=== PATIENT | female | born 1965 | race African-American/Black ===

== ENCOUNTER 2021-03-07 19:29 | Emergency (ER) | payer BC ==
[~2021-03-07] VITALS: Ht 170.2 cm; Wt 72.6 kg
[2021-03-07 22:05] LABS: Basophils # (auto) 0 10 ^3/uL (0-0.2); Basophils % (auto) 0.6 % (0.0-2.0); Eosinophils # (auto) 0 10 ^3/uL (0-0.8); Eosinophils % (auto) 0.1 % (0.0-7.0); Hematocrit 35.1 % (36.0-46.0); Hemoglobin 11.3 g/dL (12.2-16.2); Lymphocytes # (auto) 0.4 10 ^3/uL (0.4-5.4); Lymphocytes % (auto) 5.5 % (10.0-50.0); Mean Corpuscular Hemoglobin 28.6 pg (28.0-32.0); Mean Corpuscular Hgb Conc. 32.3 g/dL (32.0-36.0); Mean Corpuscular Volume 88.8 fL (80.0-100.0); Monocytes # (auto) 0.4 10 ^3/uL (0-1.3); Monocytes % (auto) 5.7 % (0.0-12.0); Neutrophils # (auto) 6.9 10 ^3/uL (1.6-8.6); Neutrophils % (auto) 88.1 % (37.0-80.0); Nucleated Red Blood Cells % 0.1 %; Red Blood Cells 3.95 10^6/uL (4.0-5.20); Red Cell Distribution Width 13.1 % (11.8-14.3); White Blood Cell 7.8 10^3/uL (4.4-10.8)
[2021-03-07 22:22] LABS: Albumin 4.2 g/dL (3.4-5.0); Calcium 8.3 mg/dL (8.5-10.1)
[2021-03-07 22:34] LABS: BUN/Creatinine Ratio 7.6; Bilirubin, Total 0.4 mg/dL (0.2-1.0)
[2021-03-07 22:39] LABS: Magnesium 4.3 mg/dL (1.6-2.6); Potassium 6.6 mmol/L (3.5-5.1)
[2021-03-08] MEDS ORDERED: SODIUM ZIRCONIUM CYCL 10 GM PAK PO ONE (00:45)
[2021-03-08] MEDS ORDERED: DEXTROSE (50%) 50ML SYRG IV ONE (00:45)
[2021-03-08] MEDS ORDERED: ALBUTEROL SULF 2.5 MG/0.5ML(0.5%) NEB SOLN NEB ONE (00:45)
[2021-03-08] MEDS ORDERED: InsuLIN REG 1unit/0.01ml Soln (100units/ml) IV ONE (00:45)
[2021-03-08] MEDS ORDERED: CALCIUM GLUC 1,000mg/50ml-NS 50 ML IV ONE (00:45)
[2021-03-08] MEDS ORDERED: SODIUM BICARBONATE 8.4% INJ 50ML SYRINGE IV ONE (00:45)
[2021-03-08 05:00] VITALS: BP 186/93
== END 2021-03-08 05:59 | disposition home or self-care (01) ==
LOC: ER 19:29
DX: E87.5 Hyperkalemia (principal); I12.0 Hypertensive chronic kidney disease with stage 5 chronic kidney disease or end stage renal disease; N18.6 End stage renal disease; R07.89 Other chest pain
CPT/HCPCS: 36415; 71045; 80053; 82962; 83735; 83880; 84443; 84484; 85025; 93005; 94644; 99285; J1815; 96361; 96374

== ENCOUNTER 2022-04-28 09:13 | Inpatient (IN) | payer BC, MEDICARE ==
[~2022-04-28] VITALS: Ht 170.2 cm; Wt 71.4 kg
[2022-04-28] MEDS ORDERED: DEXTROSE 50% SYRINGE 50 ML IV ONE (09:21)
[2022-04-28] MEDS ORDERED: SODIUM CHLORIDE 0.9% 1,000 ML IV ONE ×2 (09:30)
[2022-04-28] MEDS ORDERED: DEXTROSE (50%) 50ML SYRG IV ONE ×3 (09:45→10:45)
[2022-04-28 10:12] LABS: Albumin 3.2 g/dL (3.4-5.0); Calcium 8.2 mg/dL (8.5-10.1)
[2022-04-28 10:14] LABS: BUN/Creatinine Ratio 11.1; Bilirubin, Total 1.4 mg/dL (0.2-1.0); Total Protein 6.4 g/dL (6.4-8.2)
[2022-04-28] MEDS ORDERED: DEXTROSE 10% 1,000 ML IV ONE (10:30)
[2022-04-28 10:41] LABS: Potassium 6.7 mmol/L (3.5-5.1)
[2022-04-28] MEDS ORDERED: SODIUM BICARBONATE 8.4% INJ 50ML SYRINGE IV ONE (10:45)
[2022-04-28] MEDS ORDERED: ALBUTEROL SULF 2.5 MG/0.5ML(0.5%) NEB SOLN NEB ONE (10:45)
[2022-04-28] MEDS ORDERED: FUROSEMIDE 20 MG/2 ML VIAL IV ONE (10:45)
[2022-04-28] MEDS ORDERED: SODIUM ZIRCONIUM CYCL 10 GM PAK PO ONE (10:45)
[2022-04-28] MEDS ORDERED: CALCIUM GLUC 1,000mg/50ml-NS 50 ML IV ONE (10:45)
[2022-04-28 10:53] LABS: Hematocrit 33.4 % (36.0-46.0); Hemoglobin 8.4 g/dL (12.2-16.2); Mean Corpuscular Hemoglobin 29.8 pg (28.0-32.0); Mean Corpuscular Hgb Conc. 25.3 g/dL (32.0-36.0); Mean Corpuscular Volume 117.9 fL (80.0-100.0); Red Blood Cells 2.83 10^6/uL (4.0-5.20); White Blood Cell 9.9 10^3/uL (4.4-10.8)
[2022-04-28 10:57] LABS: Red Cell Distribution Width 24.8 % (11.8-14.3)
[2022-04-28 10:59] LABS: Basophils % (manual) 0 (0.0-2.0); Blast Cells 0; Promyelocytes % 0
[2022-04-28] MEDS ORDERED: SODIUM BICARBONATE 8.4 % INJ 50ML VIAL IV ONE ×3 (11:00→16:00)
[2022-04-28] MEDS ORDERED: NOREPINEPHRINE 8 MG/250ML KIT 250 ML IV ONE (11:07)
[2022-04-28] MEDS: MEROPENEM 500MG IVPB 50 ML IV SCH (11:15)
[2022-04-28] MEDS ORDERED: SODIUM CHL 0.9% 1000 ML BAG XX ONE (11:15)
[2022-04-28] MEDS ORDERED: VANCOMYCIN PER PHARMACY 0 MG IV SCH (11:15)
[2022-04-28 11:39] LABS: Band Neutrophils % (manual) 5; Eosinophils % (manual) 1 (0-7); Lymphocytes % (manual) 5 (10.0-50.0); Metamyelocytes % 3; Monocytes % (manual) 4 (0-12); Myelocytes % 1; Reactive Lymphocytes 1
[2022-04-28] MEDS ORDERED: VANCOMYCIN 1GM/250ML 250 ML IV ONE (11:45)
[2022-04-28] MEDS: NOREPINEPHRINE 8 MG/250ML KIT 250 ML IV SCH (12:15)
[2022-04-28] MEDS ORDERED: ROCURONIUM 10MG/ML 10ML VIAL IV ONE ×3 (12:45→14:15)
[2022-04-28] MEDS ORDERED: ETOMIDATE (2MG/ML) 20ML VIAL IV ONE ×3 (12:45→14:15)
[2022-04-28 12:51] VITALS: BP 25/20
[2022-04-28] MEDS: DOPamine 1600MCG/ML D5W 250 ML IV SCH (13:05)
[2022-04-28] MEDS ORDERED: SODIUM BICARBONATE 8.4% INJ 50ML SYRINGE ONE (13:11)
[2022-04-28] MEDS ORDERED: PHENYLEPHRINE IV 250 ML IV ONE ×4 (13:13→18:07)
[2022-04-28 13:35] VITALS: BP 25/20
[2022-04-28] MEDS ORDERED: DOBUTamine 1000MCG/ML 250 ML IV SCH (14:15)
[2022-04-28] MEDS ORDERED: MORPHINE SULFATE INJ 2 MG/ml SYRG IV PRN (14:15)
[2022-04-28] MEDS ORDERED: NITROGLYCERIN 0.4 MG SL TAB SL PRN (14:15)
[2022-04-28 14:29] VITALS: BP 39/24
[2022-04-28] MEDS ORDERED: SODIUM BICARBONATE 50ML VIAL 150 ML in D5W 5% 1,000 ML IV ONE (14:30)
[2022-04-28] MEDS: EPINEPHrine HCL 250 ML IV SCH (14:45)
[2022-04-28] MEDS: SODIUM BICARBONATE 50ML VIAL 150 ML in D5W 5% 1,000 ML IV SCH (14:49)
[2022-04-28 14:52] LABS: BUN/Creatinine Ratio 11.9; Calcium 7.7 mg/dL (8.5-10.1); Potassium 5.4 mmol/L (3.5-5.1)
[2022-04-28] MEDS: VASOPRESSIN 20 UNITS in SODIUM CHL 0.9% 99 ML IV SCH (15:02)
[2022-04-28 15:30] LABS: INR 3.61 (0.9-1.15); Partial Thromboplastin Time 69.4 sec (24.6-33.4)
[2022-04-28 16:03] VITALS: BP 116/72
[2022-04-28] MEDS: PHENYLEPHRINE IV 250 ML IV SCH ×3 (18:30→22:10)
[2022-04-28] MEDS: PANTOPRAZOLE 40 MG/10 ML VIAL INJ IV SCH (21:59)
[2022-04-28 23:36] VITALS: BP 124/59
[2022-04-29] VITALS (32 sets, daily range): BP systolic 91–135; BP diastolic 47–80
[2022-04-29] MEDS: PHENYLEPHRINE IV 250 ML IV SCH ×4 (00:15→06:32)
[2022-04-29] MEDS ORDERED: SODIUM BICARBONATE 8.4 % INJ 50ML VIAL IV ONE (00:30)
[2022-04-29] MEDS: SODIUM BICARBONATE 50ML VIAL 150 ML in D5W 5% 1,000 ML IV SCH ×2 (00:35→13:27)
[2022-04-29] MEDS ORDERED: VASOPRESSIN 20 UNIT/ML ONE (00:49)
[2022-04-29] MEDS: VASOPRESSIN 20 UNITS in SODIUM CHL 0.9% 99 ML IV SCH ×3 (00:51→23:36)
[2022-04-29] MEDS: NOREPINEPHRINE 8 MG/250ML KIT 250 ML IV SCH ×5 (01:02→22:45)
[2022-04-29] MEDS: ACCU-CHEK COMFORT CURVE STRIP VI SCH ×6 (01:19→20:00)
[2022-04-29] MEDS: MIDAZOLAM DRIP 50 mg/50mL 50 ML IV SCH ×4 (01:25→23:54)
[2022-04-29] MEDS: InsuLIN REG 1unit/0.01ml Soln (100units/ml) SC SCH ×6 (01:30→20:00)
[2022-04-29 04:47] LABS: Hematocrit 31.8 % (36.0-46.0); Hemoglobin 8.8 g/dL (12.2-16.2); Mean Corpuscular Hemoglobin 28.3 pg (28.0-32.0); Mean Corpuscular Hgb Conc. 27.8 g/dL (32.0-36.0); Mean Corpuscular Volume 101.7 fL (80.0-100.0); Red Blood Cells 3.12 10^6/uL (4.0-5.20); White Blood Cell 29.1 10^3/uL (4.4-10.8)
[2022-04-29 04:48] LABS: Albumin 2.8 g/dL (3.4-5.0); Calcium 6.6 mg/dL (8.5-10.1)
[2022-04-29 05:04] LABS: BUN/Creatinine Ratio 11.9; Bilirubin, Total 1.4 mg/dL (0.2-1.0); Total Protein 5.7 g/dL (6.4-8.2)
[2022-04-29 05:06] LABS: Potassium 5.9 mmol/L (3.5-5.1)
[2022-04-29 05:07] LABS: Red Cell Distribution Width 23.7 % (11.8-14.3)
[2022-04-29 05:08] LABS: Basophils % (manual) 0 (0.0-2.0); Blast Cells 0; Eosinophils % (manual) 0 (0-7); Metamyelocytes % 0; Myelocytes % 0; Promyelocytes % 0; Reactive Lymphocytes 0
[2022-04-29] MEDS ORDERED: SODIUM ZIRCONIUM CYCL 10 GM PAK PO ONE (06:15)
[2022-04-29] MEDS: PHENYLEPHRINE INJ 40 MG in SODIUM CHL 0.9% 246 ML IV SCH ×2 (09:11→13:16)
[2022-04-29] MEDS: PANTOPRAZOLE 40 MG/10 ML VIAL INJ IV SCH ×2 (09:25→22:22)
[2022-04-29] MEDS: MEROPENEM 500MG IVPB 50 ML IV SCH (09:26)
[2022-04-29 10:19] LABS: Band Neutrophils % (manual) 2; Lymphocytes % (manual) 4 (10.0-50.0); Monocytes % (manual) 1 (0-12)
[2022-04-29] MEDS: DOPamine 1600MCG/ML D5W 250 ML IV SCH (12:59)
[2022-04-29] MEDS ORDERED: EPINEPHrine HCL 1 MG/10 ML SYRG IV ONE (13:02)
[2022-04-29] MEDS ORDERED: DEXTROSE (50%) 50ML SYRG IV ONE (13:02)
[2022-04-29] MEDS ORDERED: SODIUM BICARBONATE 8.4% INJ 50ML SYRINGE IV ONE (13:02)
[2022-04-29] MEDS ORDERED: DOPamine 1600mCg/ml 400MG/250ml NSorD5 KIT/BAG IV ONE (13:02)
[2022-04-29] MEDS ORDERED: SODIUM CHL 0.9% 1000 ML BAG XX ONE (14:30)
[2022-04-29] MEDS: EPINEPHrine HCL 250 ML IV SCH (14:45)
[2022-04-29 17:09] LABS: Basophils # (auto) 0 10 ^3/uL (0-0.2); Eosinophils # (auto) 0 10 ^3/uL (0-0.8); Eosinophils % (auto) 0.1 % (0.0-7.0); Hemoglobin 9.2 g/dL (12.2-16.2); Lymphocytes # (auto) 0.4 10 ^3/uL (0.4-5.4); Lymphocytes % (auto) 1.9 % (10.0-50.0); Mean Corpuscular Hemoglobin 29.2 pg (28.0-32.0); Mean Corpuscular Hgb Conc. 31.8 g/dL (32.0-36.0); Mean Corpuscular Volume 91.9 fL (80.0-100.0); Monocytes # (auto) 0.8 10 ^3/uL (0-1.3); Monocytes % (auto) 3.7 % (0.0-12.0); Neutrophils # (auto) 19.8 10 ^3/uL (1.6-8.6); Neutrophils % (auto) 94.3 % (37.0-80.0); Nucleated Red Blood Cells % 2.3 %; Red Blood Cells 3.16 10^6/uL (4.0-5.20)
[2022-04-29 17:10] LABS: Red Cell Distribution Width 23.5 % (11.8-14.3)
[2022-04-29 17:27] LABS: Albumin 2.8 g/dL (3.4-5.0); Calcium 6.7 mg/dL (8.5-10.1); Potassium 4.2 mmol/L (3.5-5.1)
[2022-04-29 18:12] LABS: BUN/Creatinine Ratio 11.8
[2022-04-29 18:13] LABS: Bilirubin, Total 2.1 mg/dL (0.2-1.0); Total Protein 5.5 g/dL (6.4-8.2)
[2022-04-29] MEDS ORDERED: EPOETIN ALFA-EPBX 10,000 UNIT/1ML VIAL SC ONE (21:00)
[2022-04-30] VITALS (102 sets, daily range): BP systolic 86–119; BP diastolic 50–72
[2022-04-30] MEDS: InsuLIN REG 1unit/0.01ml Soln (100units/ml) SC SCH ×7 (04:00→23:38)
[2022-04-30] MEDS: ACCU-CHEK COMFORT CURVE STRIP VI SCH ×7 (04:00→23:39)
[2022-04-30 06:08] LABS: Basophils # (auto) 0 10 ^3/uL (0-0.2); Eosinophils # (auto) 0 10 ^3/uL (0-0.8); Eosinophils % (auto) 0.1 % (0.0-7.0); Mean Corpuscular Hgb Conc. 30.8 g/dL (32.0-36.0); Nucleated Red Blood Cells % 0.7 %
[2022-04-30 06:09] LABS: Basophils % (auto) 0.2 % (0.0-2.0); Hematocrit 27.6 % (36.0-46.0); Hemoglobin 8.5 g/dL (12.2-16.2); Lymphocytes # (auto) 0.8 10 ^3/uL (0.4-5.4); Lymphocytes % (auto) 3.9 % (10.0-50.0); Mean Corpuscular Hemoglobin 28.7 pg (28.0-32.0); Mean Corpuscular Volume 93.1 fL (80.0-100.0); Monocytes % (auto) 4.8 % (0.0-12.0); Neutrophils # (auto) 18.2 10 ^3/uL (1.6-8.6); Red Blood Cells 2.96 10^6/uL (4.0-5.20)
[2022-04-30 06:12] LABS: Red Cell Distribution Width 24.5 % (11.8-14.3)
[2022-04-30 06:18] LABS: BUN/Creatinine Ratio 10.6; Calcium 7.1 mg/dL (8.5-10.1); Potassium 5.1 mmol/L (3.5-5.1)
[2022-04-30] MEDS: PANTOPRAZOLE 40 MG/10 ML VIAL INJ IV SCH ×2 (09:37→22:22)
[2022-04-30] MEDS: MEROPENEM 500MG IVPB 50 ML IV SCH (09:37)
[2022-04-30] MEDS ORDERED: Nepro With Carb Steady 1 Liter Bottle GT SCH (10:15)
[2022-04-30] MEDS: VASOPRESSIN 20 UNITS in SODIUM CHL 0.9% 99 ML IV SCH ×2 (10:43→21:50)
[2022-04-30] MEDS ORDERED: VANCOMYCIN 1GM/250ML 250 ML IV ONE (13:00)
[2022-04-30] MEDS ORDERED: METOPROLOL TARTRATE 1MG/1ML-5ML VIAL IV ONE (13:45)
[2022-04-30] MEDS: MIDAZOLAM DRIP 50 mg/50mL 50 ML IV SCH ×2 (16:14→23:41)
[2022-04-30] MEDS: NOREPINEPHRINE 8 MG/250ML KIT 250 ML IV SCH (17:20)
[2022-04-30] MEDS: PHENYLEPHRINE INJ 40 MG in SODIUM CHL 0.9% 246 ML IV SCH (17:20)
[2022-04-30] MEDS ORDERED: AMIODARONE 450mg/250ml AE 250 ML IV SCH (18:00)
[2022-04-30] MEDS: METOPROLOL TARTRATE 1MG/1ML-5ML VIAL IV SCH ×2 (18:18→23:38)
[2022-05-01] VITALS (108 sets, daily range): BP systolic 78–136; BP diastolic 40–79
[2022-05-01] MEDS: AMIODARONE 450mg/250ml AE 250 ML IV SCH ×2 (00:24→15:00)
[2022-05-01] MEDS: NOREPINEPHRINE 8 MG/250ML KIT 250 ML IV SCH ×2 (01:39→21:45)
[2022-05-01] MEDS: METOPROLOL TARTRATE 1MG/1ML-5ML VIAL IV SCH ×3 (03:49→18:00)
[2022-05-01] MEDS: VASOPRESSIN 20 UNITS in SODIUM CHL 0.9% 99 ML IV SCH ×2 (03:50→19:38)
[2022-05-01] MEDS: ACCU-CHEK COMFORT CURVE STRIP VI SCH ×5 (03:55→20:00)
[2022-05-01] MEDS: InsuLIN REG 1unit/0.01ml Soln (100units/ml) SC SCH ×5 (03:56→20:00)
[2022-05-01 04:54] LABS: Hemoglobin 8.6 g/dL (12.2-16.2)
[2022-05-01 04:58] LABS: Hematocrit 27.7 % (36.0-46.0); Mean Corpuscular Hemoglobin 28.7 pg (28.0-32.0); Mean Corpuscular Hgb Conc. 30.9 g/dL (32.0-36.0); Red Blood Cells 2.98 10^6/uL (4.0-5.20); White Blood Cell 20.2 10^3/uL (4.4-10.8)
[2022-05-01 05:10] LABS: INR 1.74 (0.9-1.15); Partial Thromboplastin Time 36.8 sec (24.6-33.4)
[2022-05-01 05:11] LABS: Red Cell Distribution Width 25.8 % (11.8-14.3)
[2022-05-01 05:12] LABS: Band Neutrophils % (manual) 0; Basophils % (manual) 0 (0.0-2.0); Blast Cells 0; Metamyelocytes % 0; Myelocytes % 0; Promyelocytes % 0; Reactive Lymphocytes 0
[2022-05-01 05:14] LABS: Albumin 2.2 g/dL (3.4-5.0); BUN/Creatinine Ratio 11.3; Calcium 7.3 mg/dL (8.5-10.1); Potassium 5.5 mmol/L (3.5-5.1)
[2022-05-01 05:17] LABS: Bilirubin, Total 2.9 mg/dL (0.2-1.0)
[2022-05-01] MEDS ORDERED: ALBUMIN 25% 100 ML IV PRN ×2 (06:45→07:00)
[2022-05-01 07:57] LABS: Eosinophils % (manual) 1 (0-7); Lymphocytes % (manual) 3 (10.0-50.0); Monocytes % (manual) 6 (0-12)
[2022-05-01] MEDS ORDERED: METOPROLOL TARTRATE 1MG/1ML-5ML VIAL IV ONE (08:15)
[2022-05-01] MEDS ORDERED: SODIUM CHL 0.9% 1000 ML BAG XX ONE (08:45)
[2022-05-01] MEDS: MEROPENEM 500MG IVPB 50 ML IV SCH (10:00)
[2022-05-01] MEDS: PHENYLEPHRINE INJ 40 MG in SODIUM CHL 0.9% 246 ML IV SCH (10:00)
[2022-05-01] MEDS: PANTOPRAZOLE 40 MG/10 ML VIAL INJ IV SCH ×2 (10:37→21:46)
[2022-05-01] MEDS: MIDAZOLAM DRIP 50 mg/50mL 50 ML IV SCH ×2 (12:17→21:48)
[2022-05-01] MEDS ORDERED: EPOETIN ALFA-EPBX 10,000 UNIT/1ML VIAL SC ONE (21:00)
[2022-05-02] VITALS (104 sets, daily range): BP systolic 83–111; BP diastolic 51–68
[2022-05-02] MEDS: PHENYLEPHRINE INJ 40 MG in SODIUM CHL 0.9% 246 ML IV SCH ×2 (02:40→19:20)
[2022-05-02] MEDS: ACCU-CHEK COMFORT CURVE STRIP VI SCH ×6 (04:00→20:00)
[2022-05-02] MEDS: InsuLIN REG 1unit/0.01ml Soln (100units/ml) SC SCH ×6 (04:00→20:00)
[2022-05-02] MEDS: MIDAZOLAM DRIP 50 mg/50mL 50 ML IV SCH ×2 (04:35→12:27)
[2022-05-02] MEDS: AMIODARONE 450mg/250ml AE 250 ML IV SCH ×2 (05:20→08:35)
[2022-05-02] MEDS: METOPROLOL TARTRATE 1MG/1ML-5ML VIAL IV SCH ×4 (05:21→18:00)
[2022-05-02 05:52] LABS: Basophils # (auto) 0 10 ^3/uL (0-0.2); Eosinophils # (auto) 0.1 10 ^3/uL (0-0.8); Hemoglobin 8.7 g/dL (12.2-16.2)
[2022-05-02 05:56] LABS: Basophils % (auto) 0.1 % (0.0-2.0); Eosinophils % (auto) 0.4 % (0.0-7.0); Hematocrit 28.5 % (36.0-46.0); Lymphocytes % (auto) 5.4 % (10.0-50.0); Mean Corpuscular Hemoglobin 29.9 pg (28.0-32.0); Mean Corpuscular Hgb Conc. 30.7 g/dL (32.0-36.0); Mean Corpuscular Volume 97.4 fL (80.0-100.0); Monocytes # (auto) 1.3 10 ^3/uL (0-1.3); Monocytes % (auto) 7.2 % (0.0-12.0); Neutrophils # (auto) 16.1 10 ^3/uL (1.6-8.6); Neutrophils % (auto) 86.9 % (37.0-80.0); Nucleated Red Blood Cells % 1.6 %; Red Blood Cells 2.92 10^6/uL (4.0-5.20); White Blood Cell 18.6 10^3/uL (4.4-10.8)
[2022-05-02] MEDS: VASOPRESSIN 20 UNITS in SODIUM CHL 0.9% 99 ML IV SCH ×3 (05:58→21:08)
[2022-05-02 06:01] LABS: Red Cell Distribution Width 25.4 % (11.8-14.3)
[2022-05-02 06:12] LABS: Albumin 2.4 g/dL (3.4-5.0); Calcium 7.8 mg/dL (8.5-10.1); Potassium 4.7 mmol/L (3.5-5.1)
[2022-05-02 06:15] LABS: Bilirubin, Total 2.7 mg/dL (0.2-1.0); Total Protein 5.5 g/dL (6.4-8.2)
[2022-05-02] MEDS ORDERED: AMIODARONE HCL 200 MG TAB PO SCH (10:00)
[2022-05-02] MEDS ORDERED: Nepro With Carb Steady 1 Liter Bottle GT SCH (10:00)
[2022-05-02] MEDS: PANTOPRAZOLE 40 MG/10 ML VIAL INJ IV SCH ×2 (10:27→21:59)
[2022-05-02] MEDS: MEROPENEM 500MG IVPB 50 ML IV SCH ×2 (10:39→21:59)
[2022-05-02] MEDS: NOREPINEPHRINE 8 MG/250ML KIT 250 ML IV SCH (12:29)
[2022-05-02] MEDS ORDERED: AMIODARONE 450mg/250ml AE 250 ML IV ONE (19:50)
[2022-05-03] VITALS (105 sets, daily range): BP systolic 82–122; BP diastolic 55–73
[2022-05-03] MEDS: ACCU-CHEK COMFORT CURVE STRIP VI SCH ×6 (00:23→20:00)
[2022-05-03] MEDS: InsuLIN REG 1unit/0.01ml Soln (100units/ml) SC SCH ×6 (04:00→20:00)
[2022-05-03] MEDS: METOPROLOL TARTRATE 1MG/1ML-5ML VIAL IV SCH ×4 (05:03→17:49)
[2022-05-03 05:12] LABS: Basophils # (auto) 0.1 10 ^3/uL (0-0.2); Basophils % (auto) 0.4 % (0.0-2.0); Eosinophils # (auto) 0.2 10 ^3/uL (0-0.8); Hemoglobin 8.9 g/dL (12.2-16.2); Lymphocytes # (auto) 0.8 10 ^3/uL (0.4-5.4)
[2022-05-03 05:15] LABS: Eosinophils % (auto) 1.1 % (0.0-7.0); Hematocrit 28.6 % (36.0-46.0); Mean Corpuscular Hgb Conc. 30.9 g/dL (32.0-36.0); Mean Corpuscular Volume 96.9 fL (80.0-100.0); Monocytes # (auto) 1.2 10 ^3/uL (0-1.3); Neutrophils # (auto) 14.3 10 ^3/uL (1.6-8.6); Neutrophils % (auto) 86.5 % (37.0-80.0); Nucleated Red Blood Cells % 1.2 %; Red Blood Cells 2.95 10^6/uL (4.0-5.20); White Blood Cell 16.6 10^3/uL (4.4-10.8)
[2022-05-03 05:17] LABS: Red Cell Distribution Width 24.8 % (11.8-14.3)
[2022-05-03 05:24] LABS: Albumin 1.9 g/dL (3.4-5.0); BUN/Creatinine Ratio 10.3; Calcium 8.1 mg/dL (8.5-10.1); Potassium 4.7 mmol/L (3.5-5.1)
[2022-05-03 05:27] LABS: Total Protein 5.2 g/dL (6.4-8.2)
[2022-05-03] MEDS: DEXTROSE (50%) 50ML SYRG IV PRN (08:01)
[2022-05-03] MEDS: NOREPINEPHRINE 8 MG/250ML KIT 250 ML IV SCH (08:02)
[2022-05-03] MEDS: PANTOPRAZOLE 40 MG/10 ML VIAL INJ IV SCH ×2 (10:06→22:00)
[2022-05-03] MEDS: MEROPENEM 500MG IVPB 50 ML IV SCH ×2 (10:07→21:59)
[2022-05-03] MEDS: PHENYLEPHRINE INJ 40 MG in SODIUM CHL 0.9% 246 ML IV SCH (10:07)
[2022-05-03] MEDS: VASOPRESSIN 20 UNITS in SODIUM CHL 0.9% 99 ML IV SCH (10:08)
[2022-05-03] MEDS ORDERED: AMIODARONE HCL 200 MG TAB NG ONE (12:30)
[2022-05-03] MEDS ORDERED: SODIUM CHL 0.9% 1000 ML BAG XX ONE (13:00)
[2022-05-03] MEDS: ALBUMIN 25% 100 ML IV SCH ×3 (13:33→15:32)
[2022-05-03] MEDS: METOCLOPRAMIDE HCL 5MG/ml INJ 2ml VIAL IV SCH ×2 (13:44→22:02)
[2022-05-03] MEDS ORDERED: VANCOMYCIN 1GM/250ML 250 ML IV ONE (18:00)
[2022-05-03] MEDS ORDERED: EPOETIN ALFA-EPBX 10,000 UNIT/1ML VIAL SC ONE (21:00)
[2022-05-03] MEDS: AMIODARONE HCL 200 MG TAB NG SCH (22:12)
[2022-05-03] MEDS: MIDAZOLAM DRIP 50 mg/50mL 50 ML IV SCH (23:30)
[2022-05-04] VITALS (105 sets, daily range): BP systolic 85–141; BP diastolic 43–85
[2022-05-04] MEDS: VASOPRESSIN 20 UNITS in SODIUM CHL 0.9% 99 ML IV SCH ×2 (03:39→11:52)
[2022-05-04] MEDS: InsuLIN REG 1unit/0.01ml Soln (100units/ml) SC SCH ×6 (04:00→20:00)
[2022-05-04] MEDS: ACCU-CHEK COMFORT CURVE STRIP VI SCH ×6 (04:00→20:00)
[2022-05-04] MEDS: PHENYLEPHRINE INJ 40 MG in SODIUM CHL 0.9% 246 ML IV SCH ×2 (04:40→21:20)
[2022-05-04] MEDS: METOCLOPRAMIDE HCL 5MG/ml INJ 2ml VIAL IV SCH ×3 (06:00→22:01)
[2022-05-04] MEDS: METOPROLOL TARTRATE 1MG/1ML-5ML VIAL IV SCH ×4 (06:00→18:00)
[2022-05-04 06:59] LABS: Eosinophils # (auto) 0.1 10 ^3/uL (0-0.8); Hematocrit 26.7 % (36.0-46.0); Hemoglobin 8.4 g/dL (12.2-16.2); Monocytes % (auto) 8.6 % (0.0-12.0); Nucleated Red Blood Cells % 0.3 %
[2022-05-04 07:08] LABS: Basophils # (auto) 0.1 10 ^3/uL (0-0.2); Basophils % (auto) 0.5 % (0.0-2.0); Lymphocytes # (auto) 0.6 10 ^3/uL (0.4-5.4); Lymphocytes % (auto) 5.2 % (10.0-50.0); Mean Corpuscular Hemoglobin 30.5 pg (28.0-32.0); Mean Corpuscular Hgb Conc. 31.4 g/dL (32.0-36.0); Mean Corpuscular Volume 97.2 fL (80.0-100.0); Neutrophils # (auto) 10.2 10 ^3/uL (1.6-8.6); Neutrophils % (auto) 84.7 % (37.0-80.0); Red Blood Cells 2.75 10^6/uL (4.0-5.20)
[2022-05-04 07:19] LABS: BUN/Creatinine Ratio 9.4; Calcium 8.3 mg/dL (8.5-10.1); Potassium 4.3 mmol/L (3.5-5.1)
[2022-05-04 08:56] LABS: Red Cell Distribution Width 25.1 % (11.8-14.3)
[2022-05-04] MEDS: AMIODARONE HCL 200 MG TAB NG SCH ×2 (09:28→22:01)
[2022-05-04] MEDS: PANTOPRAZOLE 40 MG/10 ML VIAL INJ IV SCH ×2 (09:28→22:01)
[2022-05-04] MEDS: MEROPENEM 500MG IVPB 50 ML IV SCH ×2 (09:29→22:01)
[2022-05-04] MEDS: NOREPINEPHRINE 8 MG/250ML KIT 250 ML IV SCH ×2 (09:29→17:12)
[2022-05-05] VITALS (98 sets, daily range): BP systolic 79–170; BP diastolic 44–138
[2022-05-05] MEDS: MIDAZOLAM DRIP 50 mg/50mL 50 ML IV SCH (01:15)
[2022-05-05] MEDS: VASOPRESSIN 20 UNITS in SODIUM CHL 0.9% 99 ML IV SCH ×2 (01:53→13:00)
[2022-05-05] MEDS: ACCU-CHEK COMFORT CURVE STRIP VI SCH ×5 (04:00→17:52)
[2022-05-05] MEDS: InsuLIN REG 1unit/0.01ml Soln (100units/ml) SC SCH ×5 (04:00→17:53)
[2022-05-05] MEDS: METOCLOPRAMIDE HCL 5MG/ml INJ 2ml VIAL IV SCH (06:00)
[2022-05-05] MEDS: METOPROLOL TARTRATE 1MG/1ML-5ML VIAL IV SCH ×4 (06:00→17:53)
[2022-05-05] MEDS: PANTOPRAZOLE 40 MG/10 ML VIAL INJ IV SCH ×2 (09:43→23:25)
[2022-05-05] MEDS: MEROPENEM 500MG IVPB 50 ML IV SCH ×2 (09:44→22:00)
[2022-05-05] MEDS: AMIODARONE HCL 200 MG TAB NG SCH ×2 (09:45→23:25)
[2022-05-05] MEDS: PHENYLEPHRINE INJ 40 MG in SODIUM CHL 0.9% 246 ML IV SCH (14:00)
[2022-05-06] VITALS (85 sets, daily range): BP systolic 88–187; BP diastolic 54–123
[2022-05-06] MEDS: VASOPRESSIN 20 UNITS in SODIUM CHL 0.9% 99 ML IV SCH ×3 (00:07→22:21)
[2022-05-06] MEDS: MIDAZOLAM DRIP 50 mg/50mL 50 ML IV SCH (01:15)
[2022-05-06] MEDS: METOPROLOL TARTRATE 1MG/1ML-5ML VIAL IV SCH ×5 (06:00→18:16)
[2022-05-06] MEDS: ACCU-CHEK COMFORT CURVE STRIP VI SCH ×4 (06:00→18:16)
[2022-05-06] MEDS: PHENYLEPHRINE INJ 40 MG in SODIUM CHL 0.9% 246 ML IV SCH ×2 (06:40→22:30)
[2022-05-06] MEDS ORDERED: SODIUM CHL 0.9% 1000 ML BAG XX ONE (07:15)
[2022-05-06] MEDS: InsuLIN REG 1unit/0.01ml Soln (100units/ml) SC SCH ×4 (07:51→18:00)
[2022-05-06 09:38] LABS: Eosinophils # (auto) 0.1 10 ^3/uL (0-0.8); Eosinophils % (auto) 1.2 % (0.0-7.0); Hemoglobin 7.9 g/dL (12.2-16.2); Lymphocytes # (auto) 0.3 10 ^3/uL (0.4-5.4); Lymphocytes % (auto) 3.4 % (10.0-50.0); Mean Corpuscular Hemoglobin 31.2 pg (28.0-32.0); Monocytes # (auto) 0.8 10 ^3/uL (0-1.3); Nucleated Red Blood Cells % 0.1 %
[2022-05-06 09:40] LABS: Basophils # (auto) 0.2 10 ^3/uL (0-0.2); Basophils % (auto) 2.1 % (0.0-2.0); Hematocrit 24.7 % (36.0-46.0); Mean Corpuscular Hgb Conc. 31.8 g/dL (32.0-36.0); Mean Corpuscular Volume 98.2 fL (80.0-100.0); Neutrophils # (auto) 8.4 10 ^3/uL (1.6-8.6); Neutrophils % (auto) 85.3 % (37.0-80.0); Red Blood Cells 2.51 10^6/uL (4.0-5.20); White Blood Cell 9.9 10^3/uL (4.4-10.8)
[2022-05-06 09:41] LABS: Red Cell Distribution Width 27.7 % (11.8-14.3)
[2022-05-06 09:48] LABS: Albumin 2.8 g/dL (3.4-5.0); Calcium 8.3 mg/dL (8.5-10.1); Potassium 4.1 mmol/L (3.5-5.1)
[2022-05-06 09:51] LABS: BUN/Creatinine Ratio 10.4; Bilirubin, Total 1.4 mg/dL (0.2-1.0); Total Protein 5.9 g/dL (6.4-8.2)
[2022-05-06] MEDS: PANTOPRAZOLE 40 MG/10 ML VIAL INJ IV SCH ×2 (10:58→21:52)
[2022-05-06] MEDS: MEROPENEM 500MG IVPB 50 ML IV SCH ×2 (10:59→21:55)
[2022-05-06] MEDS: AMIODARONE HCL 200 MG TAB NG SCH ×2 (10:59→21:52)
[2022-05-06] MEDS: NOREPINEPHRINE 8 MG/250ML KIT 250 ML IV SCH (12:15)
[2022-05-06] MEDS ORDERED: EPOETIN ALFA-EPBX 10,000 UNIT/1ML VIAL SC ONE (21:00)
[2022-05-07] VITALS (102 sets, daily range): BP systolic 83–162; BP diastolic 47–96
[2022-05-07] MEDS: ACCU-CHEK COMFORT CURVE STRIP VI SCH ×5 (00:26→23:52)
[2022-05-07] MEDS: DEXTROSE (50%) 50ML SYRG IV PRN (00:31)
[2022-05-07] MEDS: MIDAZOLAM DRIP 50 mg/50mL 50 ML IV SCH (00:43)
[2022-05-07] MEDS: METOPROLOL TARTRATE 1MG/1ML-5ML VIAL IV SCH ×2 (05:23)
[2022-05-07] MEDS: InsuLIN REG 1unit/0.01ml Soln (100units/ml) SC SCH ×5 (06:00→23:51)
[2022-05-07 06:06] LABS: Eosinophils # (auto) 0.2 10 ^3/uL (0-0.8); Lymphocytes # (auto) 0.6 10 ^3/uL (0.4-5.4); Lymphocytes % (auto) 6.7 % (10.0-50.0)
[2022-05-07 06:09] LABS: Basophils # (auto) 0 10 ^3/uL (0-0.2); Basophils % (auto) 0.6 % (0.0-2.0); Hematocrit 25.9 % (36.0-46.0); Hemoglobin 8.1 g/dL (12.2-16.2); Mean Corpuscular Hemoglobin 31.7 pg (28.0-32.0); Mean Corpuscular Hgb Conc. 31.2 g/dL (32.0-36.0); Mean Corpuscular Volume 101.8 fL (80.0-100.0); Monocytes % (auto) 11.6 % (0.0-12.0); Neutrophils % (auto) 79.1 % (37.0-80.0); Nucleated Red Blood Cells % 0.1 %; Red Blood Cells 2.54 10^6/uL (4.0-5.20); White Blood Cell 8.8 10^3/uL (4.4-10.8)
[2022-05-07 06:13] LABS: Red Cell Distribution Width 27.8 % (11.8-14.3)
[2022-05-07 06:25] LABS: Potassium 4.5 mmol/L (3.5-5.1)
[2022-05-07 06:38] LABS: Albumin 2.7 g/dL (3.4-5.0); BUN/Creatinine Ratio 10.7; Bilirubin, Total 1.5 mg/dL (0.2-1.0); Calcium 8.3 mg/dL (8.5-10.1); Total Protein 5.3 g/dL (6.4-8.2)
[2022-05-07] MEDS: VASOPRESSIN 20 UNITS in SODIUM CHL 0.9% 99 ML IV SCH ×2 (09:28→20:35)
[2022-05-07 10:06] LABS: Hepatitis C Antibody Negative (Negative)
[2022-05-07 10:07] LABS: Hepatitis A Ab IgM Negative; Hepatitis B Core IgM Negative
[2022-05-07] MEDS ORDERED: EPINEPHrine HCL 0.5 ML NEB NEB ONE (10:30)
[2022-05-07] MEDS: PANTOPRAZOLE 40 MG/10 ML VIAL INJ IV SCH ×2 (10:31→21:22)
[2022-05-07] MEDS: AMIODARONE HCL 200 MG TAB NG SCH ×2 (10:32→21:22)
[2022-05-07] MEDS: MEROPENEM 500MG IVPB 50 ML IV SCH (10:33)
[2022-05-07] MEDS: NOREPINEPHRINE 8 MG/250ML KIT 250 ML IV SCH (12:15)
[2022-05-07] MEDS: methylPREDNISolone SOD SUCC 125 MG/2 ML VL IV SCH ×3 (12:56→23:51)
[2022-05-07] MEDS: PHENYLEPHRINE INJ 40 MG in SODIUM CHL 0.9% 246 ML IV SCH (16:00)
[2022-05-08] VITALS (89 sets, daily range): BP systolic 87–176; BP diastolic 55–122
[2022-05-08] MEDS: MIDAZOLAM DRIP 50 mg/50mL 50 ML IV SCH (01:15)
[2022-05-08 05:55] LABS: Basophils # (auto) 0 10 ^3/uL (0-0.2); Basophils % (auto) 0.1 % (0.0-2.0); Eosinophils # (auto) 0 10 ^3/uL (0-0.8); Hematocrit 25.7 % (36.0-46.0); Hemoglobin 8.2 g/dL (12.2-16.2); Lymphocytes # (auto) 0.3 10 ^3/uL (0.4-5.4); Mean Corpuscular Hemoglobin 31.3 pg (28.0-32.0); Mean Corpuscular Hgb Conc. 31.8 g/dL (32.0-36.0); Mean Corpuscular Volume 98.5 fL (80.0-100.0); Monocytes # (auto) 0.2 10 ^3/uL (0-1.3); Monocytes % (auto) 1.8 % (0.0-12.0); Neutrophils # (auto) 7.9 10 ^3/uL (1.6-8.6); Neutrophils % (auto) 95.1 % (37.0-80.0); Nucleated Red Blood Cells % 0.1 %; Red Blood Cells 2.61 10^6/uL (4.0-5.20); White Blood Cell 8.3 10^3/uL (4.4-10.8)
[2022-05-08 05:56] LABS: Red Cell Distribution Width 26.5 % (11.8-14.3)
[2022-05-08] MEDS: InsuLIN REG 1unit/0.01ml Soln (100units/ml) SC SCH ×3 (06:00→17:50)
[2022-05-08] MEDS: ACCU-CHEK COMFORT CURVE STRIP VI SCH ×3 (06:08→17:50)
[2022-05-08] MEDS: methylPREDNISolone SOD SUCC 125 MG/2 ML VL IV SCH ×3 (06:08→17:51)
[2022-05-08 06:10] LABS: BUN/Creatinine Ratio 11.8; Calcium 9.3 mg/dL (8.5-10.1); Potassium 5.1 mmol/L (3.5-5.1)
[2022-05-08] MEDS: VASOPRESSIN 20 UNITS in SODIUM CHL 0.9% 99 ML IV SCH ×2 (07:42→18:49)
[2022-05-08] MEDS ORDERED: HEPARIN 1,000 UNITS/ml 1ML VIAL IV PRN (08:30)
[2022-05-08] MEDS ORDERED: SODIUM CHL 0.9% 1000 ML BAG XX ONE (08:30)
[2022-05-08] MEDS: PHENYLEPHRINE INJ 40 MG in SODIUM CHL 0.9% 246 ML IV SCH (08:40)
[2022-05-08] MEDS: PANTOPRAZOLE 40 MG/10 ML VIAL INJ IV SCH ×2 (10:39→22:29)
[2022-05-08] MEDS: AMIODARONE HCL 200 MG TAB NG SCH ×2 (10:40→22:29)
[2022-05-08] MEDS: NOREPINEPHRINE 8 MG/250ML KIT 250 ML IV SCH (12:15)
[2022-05-08] MEDS ORDERED: GLYCOPYRROLATE 0.2 MG/ML 1ML VIAL IV ONE (13:15)
[2022-05-08] MEDS: HYDROcodone-ACET 5/325MG TAB PO PRN (20:59)
[2022-05-09] VITALS (59 sets, daily range): BP systolic 94–125; BP diastolic 51–79
[2022-05-09] MEDS: methylPREDNISolone SOD SUCC 125 MG/2 ML VL IV SCH ×4 (01:01→18:43)
[2022-05-09] MEDS: MIDAZOLAM DRIP 50 mg/50mL 50 ML IV SCH (01:15)
[2022-05-09] MEDS: PHENYLEPHRINE INJ 40 MG in SODIUM CHL 0.9% 246 ML IV SCH ×2 (01:20→17:46)
[2022-05-09 05:18] LABS: Basophils # (auto) 0 10 ^3/uL (0-0.2); Eosinophils # (auto) 0 10 ^3/uL (0-0.8); Lymphocytes # (auto) 0.3 10 ^3/uL (0.4-5.4); Monocytes # (auto) 0.2 10 ^3/uL (0-1.3); Nucleated Red Blood Cells % 0.1 %; Red Blood Cells 2.58 10^6/uL (4.0-5.20)
[2022-05-09 05:22] LABS: Hematocrit 25.8 % (36.0-46.0); Lymphocytes % (auto) 4.2 % (10.0-50.0); Mean Corpuscular Hemoglobin 31.1 pg (28.0-32.0); Mean Corpuscular Hgb Conc. 31.1 g/dL (32.0-36.0); Mean Corpuscular Volume 100.1 fL (80.0-100.0); Monocytes % (auto) 3.4 % (0.0-12.0); Neutrophils # (auto) 6.5 10 ^3/uL (1.6-8.6); Neutrophils % (auto) 92.4 % (37.0-80.0)
[2022-05-09 05:26] LABS: Red Cell Distribution Width 25.8 % (11.8-14.3)
[2022-05-09 05:38] LABS: BUN/Creatinine Ratio 12.7; Calcium 9.3 mg/dL (8.5-10.1); Potassium 5.3 mmol/L (3.5-5.1)
[2022-05-09] MEDS: VASOPRESSIN 20 UNITS in SODIUM CHL 0.9% 99 ML IV SCH ×2 (05:41→17:03)
[2022-05-09] MEDS: InsuLIN REG 1unit/0.01ml Soln (100units/ml) SC SCH ×4 (06:00→17:57)
[2022-05-09] MEDS: ACCU-CHEK COMFORT CURVE STRIP VI SCH ×4 (06:02→17:47)
[2022-05-09] MEDS: AMIODARONE HCL 200 MG TAB NG SCH ×2 (10:57→22:05)
[2022-05-09] MEDS: PANTOPRAZOLE 40 MG/10 ML VIAL INJ IV SCH ×2 (10:57→22:05)
[2022-05-09] MEDS ORDERED: METOPROLOL TARTRATE 25 MG TAB PO ONE (11:00)
[2022-05-09] MEDS: NOREPINEPHRINE 8 MG/250ML KIT 250 ML IV SCH (12:15)
[2022-05-09] MEDS: ENOXAPARIN SOD 80 MG/0.8ML SYRINGE SC SCH (15:50)
[2022-05-09] MEDS: HYDROcodone-ACET 5/325MG TAB PO PRN (20:57)
[2022-05-09] MEDS: METOPROLOL TARTRATE 25 MG TAB PO SCH (22:27)
[2022-05-10] VITALS (22 sets, daily range): BP systolic 76–116; BP diastolic 43–76
[2022-05-10] MEDS: MIDAZOLAM DRIP 50 mg/50mL 50 ML IV SCH (01:02)
[2022-05-10] MEDS: VASOPRESSIN 20 UNITS in SODIUM CHL 0.9% 99 ML IV SCH ×2 (04:10→15:17)
[2022-05-10] MEDS ORDERED: SODIUM CHL 0.9% 1000 ML BAG XX ONE (04:30)
[2022-05-10] MEDS: InsuLIN REG 1unit/0.01ml Soln (100units/ml) SC SCH ×4 (05:59→18:00)
[2022-05-10] MEDS: ACCU-CHEK COMFORT CURVE STRIP VI SCH ×4 (05:59→18:07)
[2022-05-10] MEDS: methylPREDNISolone SOD SUCC 125 MG/2 ML VL IV SCH ×4 (05:59→18:12)
[2022-05-10] MEDS: DEXTROSE (50%) 50ML SYRG IV PRN (06:05)
[2022-05-10 08:01] LABS: Basophils # (auto) 0 10 ^3/uL (0-0.2); Eosinophils # (auto) 0 10 ^3/uL (0-0.8); Mean Corpuscular Hemoglobin 31.2 pg (28.0-32.0); Monocytes # (auto) 0.4 10 ^3/uL (0-1.3); White Blood Cell 9.1 10^3/uL (4.4-10.8)
[2022-05-10 08:02] LABS: Basophils % (auto) 0.2 % (0.0-2.0); Hematocrit 26.7 % (36.0-46.0); Hemoglobin 8.2 g/dL (12.2-16.2); Lymphocytes # (auto) 0.4 10 ^3/uL (0.4-5.4); Lymphocytes % (auto) 4.5 % (10.0-50.0); Mean Corpuscular Hgb Conc. 30.6 g/dL (32.0-36.0); Mean Corpuscular Volume 101.9 fL (80.0-100.0); Monocytes % (auto) 4.3 % (0.0-12.0); Neutrophils # (auto) 8.3 10 ^3/uL (1.6-8.6); Nucleated Red Blood Cells % 0.7 %; Red Blood Cells 2.62 10^6/uL (4.0-5.20)
[2022-05-10 08:21] LABS: Red Cell Distribution Width 25.9 % (11.8-14.3)
[2022-05-10 08:22] LABS: Albumin 3.2 g/dL (3.4-5.0); Calcium 8.6 mg/dL (8.5-10.1); Potassium 5.4 mmol/L (3.5-5.1)
[2022-05-10 08:27] LABS: BUN/Creatinine Ratio 13.8; Bilirubin, Total 1.3 mg/dL (0.2-1.0); Total Protein 6.1 g/dL (6.4-8.2)
[2022-05-10] MEDS: METOPROLOL TARTRATE 25 MG TAB PO SCH ×2 (09:17→22:00)
[2022-05-10] MEDS: PANTOPRAZOLE 40 MG/10 ML VIAL INJ IV SCH ×2 (09:17→22:02)
[2022-05-10] MEDS: AMIODARONE HCL 200 MG TAB NG SCH ×2 (09:17→22:03)
[2022-05-10] MEDS: ENOXAPARIN SOD 80 MG/0.8ML SYRINGE SC SCH (09:17)
[2022-05-10] MEDS: PHENYLEPHRINE INJ 40 MG in SODIUM CHL 0.9% 246 ML IV SCH (10:40)
[2022-05-10] MEDS: NOREPINEPHRINE 8 MG/250ML KIT 250 ML IV SCH (12:15)
[2022-05-10] MEDS ORDERED: VANCOMYCIN 1GM/250ML 250 ML IV ONE (13:00)
[2022-05-10] MEDS: LACTULOSE 20Gm/30ML SOLN PO SCH (18:12)
[2022-05-10] MEDS: HYDROcodone-ACET 5/325MG TAB PO PRN (18:20)
[2022-05-10] MEDS ORDERED: EPOETIN ALFA-EPBX 10,000 UNIT/1ML VIAL SC ONE (21:00)
[2022-05-10] MEDS: ACETAMINOPHEN 500 MG TAB PO PRN (22:43)
[2022-05-11] VITALS (26 sets, daily range): BP systolic 81–112; BP diastolic 40–74
[2022-05-11] MEDS: MIDAZOLAM DRIP 50 mg/50mL 50 ML IV SCH (01:15)
[2022-05-11] MEDS: methylPREDNISolone SOD SUCC 125 MG/2 ML VL IV SCH ×4 (01:33→18:00)
[2022-05-11] MEDS: VASOPRESSIN 20 UNITS in SODIUM CHL 0.9% 99 ML IV SCH ×2 (02:24→12:20)
[2022-05-11] MEDS: PHENYLEPHRINE INJ 40 MG in SODIUM CHL 0.9% 246 ML IV SCH (03:20)
[2022-05-11] MEDS: InsuLIN REG 1unit/0.01ml Soln (100units/ml) SC SCH ×3 (06:00→17:13)
[2022-05-11] MEDS: ACCU-CHEK COMFORT CURVE STRIP VI SCH ×4 (06:00→18:05)
[2022-05-11] MEDS: DEXTROSE (50%) 50ML SYRG IV PRN ×2 (07:57→12:36)
[2022-05-11 08:37] LABS: Eosinophils # (auto) 0 10 ^3/uL (0-0.8); Hemoglobin 8.2 g/dL (12.2-16.2); Monocytes # (auto) 0.6 10 ^3/uL (0-1.3)
[2022-05-11 08:38] LABS: Basophils # (auto) 0.1 10 ^3/uL (0-0.2); Basophils % (auto) 1.1 % (0.0-2.0); Hematocrit 28.5 % (36.0-46.0); Lymphocytes # (auto) 0.4 10 ^3/uL (0.4-5.4); Lymphocytes % (auto) 2.8 % (10.0-50.0); Mean Corpuscular Hemoglobin 30.6 pg (28.0-32.0); Mean Corpuscular Hgb Conc. 28.7 g/dL (32.0-36.0); Mean Corpuscular Volume 106.5 fL (80.0-100.0); Monocytes % (auto) 4.5 % (0.0-12.0); Neutrophils # (auto) 11.5 10 ^3/uL (1.6-8.6); Neutrophils % (auto) 91.6 % (37.0-80.0); Nucleated Red Blood Cells % 2.4 %; Red Blood Cells 2.67 10^6/uL (4.0-5.20); White Blood Cell 12.6 10^3/uL (4.4-10.8)
[2022-05-11 08:52] LABS: Red Cell Distribution Width 26.7 % (11.8-14.3)
[2022-05-11 08:54] LABS: Albumin 3.4 g/dL (3.4-5.0); Calcium 9.3 mg/dL (8.5-10.1)
[2022-05-11 08:58] LABS: BUN/Creatinine Ratio 13.4; Bilirubin, Total 1.8 mg/dL (0.2-1.0); Total Protein 6.4 g/dL (6.4-8.2)
[2022-05-11 09:12] LABS: Potassium 5.6 mmol/L (3.5-5.1)
[2022-05-11] MEDS: AMIODARONE HCL 200 MG TAB NG SCH (10:00)
[2022-05-11] MEDS: METOPROLOL TARTRATE 25 MG TAB PO SCH ×2 (10:00→22:00)
[2022-05-11] MEDS: LACTULOSE 20Gm/30ML SOLN PO SCH ×4 (10:00→17:13)
[2022-05-11] MEDS: PANTOPRAZOLE 40 MG/10 ML VIAL INJ IV SCH ×2 (10:01→21:47)
[2022-05-11] MEDS: ENOXAPARIN SOD 80 MG/0.8ML SYRINGE SC SCH (10:06)
[2022-05-11] MEDS ORDERED: SODIUM ZIRCONIUM CYCL 10 GM PAK PO ONE (11:15)
[2022-05-11] MEDS ORDERED: ALBUTEROL SULF 2.5 MG/0.5ML(0.5%) NEB SOLN NEB ONE (11:30)
[2022-05-11] MEDS ORDERED: AMIODARONE 450mg/250ml AE 250 ML IV SCH (12:00)
[2022-05-11] MEDS ORDERED: SODIUM BICARBONATE 8.4 % INJ 50ML VIAL IV ONE ×2 (12:00→13:00)
[2022-05-11] MEDS: NOREPINEPHRINE 8 MG/250ML KIT 250 ML IV SCH (12:15)
[2022-05-11] MEDS ORDERED: DEXTROSE 10% 1,000 ML IV ONE (13:00)
[2022-05-11] MEDS ORDERED: PPN PER PHARMACY IV SCH (13:45)
[2022-05-11] MEDS ORDERED: DEXTROSE (50%) 50ML SYRG IV SCH (13:45)
[2022-05-11] MEDS: SODIUM BICARBONATE 50ML VIAL 150 ML in D5W 5% 1,000 ML IV SCH (14:16)
[2022-05-11] MEDS ORDERED: BISACODYL 10 MG RECT SUPP PR PRN (16:15)
[2022-05-11 16:26] LABS: Lactic Acid w/Reflex 19.3 mmol/L (0.4-2.0)
[2022-05-11 17:00] LABS: INR 2.82 (0.9-1.15)
[2022-05-11] MEDS: AMIODARONE 450mg/250ml AE 250 ML IV SCH ×2 (18:06→21:47)
[2022-05-11] MEDS ORDERED: PPN PER PHARMACY IV NR ×7 (20:00)
[2022-05-11 21:32] LABS: Basophils # (auto) 0.1 10 ^3/uL (0-0.2); Eosinophils # (auto) 0 10 ^3/uL (0-0.8); Neutrophils # (auto) 22.3 10 ^3/uL (1.6-8.6); Nucleated Red Blood Cells % 1.6 %; Red Blood Cells 2.63 10^6/uL (4.0-5.20)
[2022-05-11 21:33] LABS: Basophils % (auto) 0.3 % (0.0-2.0); Hematocrit 28.6 % (36.0-46.0); Lymphocytes # (auto) 0.3 10 ^3/uL (0.4-5.4); Lymphocytes % (auto) 1.4 % (10.0-50.0); Mean Corpuscular Hemoglobin 30.5 pg (28.0-32.0); Mean Corpuscular Volume 108.8 fL (80.0-100.0); Monocytes # (auto) 1.5 10 ^3/uL (0-1.3); Monocytes % (auto) 6.1 % (0.0-12.0); Neutrophils % (auto) 92.2 % (37.0-80.0); White Blood Cell 24.2 10^3/uL (4.4-10.8)
[2022-05-11 21:34] LABS: Red Cell Distribution Width 25.9 % (11.8-14.3)
[2022-05-11] MEDS ORDERED: CEFEPIME 1GM/ 50ML 50 ML IV SCH (22:15)
[2022-05-12] VITALS (89 sets, daily range): BP systolic 78–107; BP diastolic 40–72
[2022-05-12] MEDS: SODIUM BICARBONATE 50ML VIAL 150 ML in D5W 5% 1,000 ML IV SCH ×2 (00:30→12:00)
[2022-05-12] MEDS: VASOPRESSIN 20 UNITS in SODIUM CHL 0.9% 99 ML IV SCH ×3 (00:38→22:52)
[2022-05-12] MEDS: methylPREDNISolone SOD SUCC 125 MG/2 ML VL IV SCH ×4 (00:58→17:53)
[2022-05-12] MEDS: LACTULOSE 20Gm/30ML SOLN PO SCH ×4 (00:58→17:54)
[2022-05-12] MEDS: MIDAZOLAM DRIP 50 mg/50mL 50 ML IV SCH (01:15)
[2022-05-12 05:28] LABS: Basophils # (auto) 0.1 10 ^3/uL (0-0.2); Basophils % (auto) 0.3 % (0.0-2.0); Eosinophils # (auto) 0 10 ^3/uL (0-0.8); Hemoglobin 7.5 g/dL (12.2-16.2)
[2022-05-12 05:30] LABS: Hematocrit 24.2 % (36.0-46.0); Lymphocytes # (auto) 0.2 10 ^3/uL (0.4-5.4); Mean Corpuscular Hemoglobin 31.5 pg (28.0-32.0); Mean Corpuscular Hgb Conc. 30.9 g/dL (32.0-36.0); Monocytes % (auto) 4.5 % (0.0-12.0); Neutrophils # (auto) 21.4 10 ^3/uL (1.6-8.6); Neutrophils % (auto) 94.2 % (37.0-80.0); Red Blood Cells 2.37 10^6/uL (4.0-5.20); White Blood Cell 22.7 10^3/uL (4.4-10.8)
[2022-05-12 05:40] LABS: Red Cell Distribution Width 26.1 % (11.8-14.3)
[2022-05-12 05:58] LABS: Potassium 4.1 mmol/L (3.5-5.1)
[2022-05-12] MEDS: InsuLIN REG 1unit/0.01ml Soln (100units/ml) SC SCH ×4 (06:00→18:07)
[2022-05-12 06:05] LABS: Albumin 3.5 g/dL (3.4-5.0); BUN/Creatinine Ratio 13.2; Bilirubin, Total 2.4 mg/dL (0.2-1.0); Calcium 8.8 mg/dL (8.5-10.1); Magnesium 2.9 mg/dL (1.6-2.6); Phosphorus 5.4 mg/dL (2.5-4.90)
[2022-05-12] MEDS: ACCU-CHEK COMFORT CURVE STRIP VI SCH ×4 (06:20→17:54)
[2022-05-12] MEDS: AMIODARONE 450mg/250ml AE 250 ML IV SCH ×2 (06:21→20:48)
[2022-05-12] MEDS ORDERED: MEROPENEM 500MG IVPB 50 ML IV ONE (09:15)
[2022-05-12] MEDS: PANTOPRAZOLE 40 MG/10 ML VIAL INJ IV SCH ×2 (09:36→20:47)
[2022-05-12] MEDS: ENOXAPARIN SOD 80 MG/0.8ML SYRINGE SC SCH (09:37)
[2022-05-12] MEDS: METOPROLOL TARTRATE 25 MG TAB PO SCH ×2 (09:37→22:00)
[2022-05-12] MEDS ORDERED: FLEET ENEMA(ADULT) 135 ML PR ONE (09:45)
[2022-05-12] MEDS ORDERED: metroNIDAZOLE 500MG/100ML 100 ML IV ONE (09:45)
[2022-05-12] MEDS: NOREPINEPHRINE 8 MG/250ML KIT 250 ML IV SCH (12:15)
[2022-05-12] MEDS: metroNIDAZOLE 500 MG TAB PO SCH ×2 (12:26→17:54)
[2022-05-12] MEDS ORDERED: metroNIDAZOLE 500MG/100ML 100 ML IV SCH (18:00)
[2022-05-12] MEDS ORDERED: PPN PER PHARMACY IV NR ×7 (20:00)
[2022-05-12] MEDS: MEROPENEM 500MG IVPB 50 ML IV SCH (22:00)
[2022-05-13] VITALS (81 sets, daily range): BP systolic 88–133; BP diastolic 50–75
[2022-05-13] MEDS: MIDAZOLAM DRIP 50 mg/50mL 50 ML IV SCH (01:15)
[2022-05-13 05:53] LABS: Basophils # (auto) 0 10 ^3/uL (0-0.2); Eosinophils # (auto) 0 10 ^3/uL (0-0.8); Hemoglobin 7.9 g/dL (12.2-16.2); Monocytes # (auto) 0.5 10 ^3/uL (0-1.3); White Blood Cell 15.3 10^3/uL (4.4-10.8)
[2022-05-13 05:59] LABS: Basophils % (auto) 0.1 % (0.0-2.0); Hematocrit 25.3 % (36.0-46.0); Lymphocytes # (auto) 0.3 10 ^3/uL (0.4-5.4); Lymphocytes % (auto) 2.1 % (10.0-50.0); Mean Corpuscular Hemoglobin 32.3 pg (28.0-32.0); Mean Corpuscular Hgb Conc. 31.3 g/dL (32.0-36.0); Mean Corpuscular Volume 103.1 fL (80.0-100.0); Monocytes % (auto) 3.2 % (0.0-12.0); Neutrophils # (auto) 14.5 10 ^3/uL (1.6-8.6); Neutrophils % (auto) 94.6 % (37.0-80.0); Red Blood Cells 2.45 10^6/uL (4.0-5.20)
[2022-05-13] MEDS: ACCU-CHEK COMFORT CURVE STRIP VI SCH ×4 (06:00→18:07)
[2022-05-13] MEDS ORDERED: SODIUM CHL 0.9% 1000 ML BAG XX ONE ×2 (06:00→06:15)
[2022-05-13] MEDS: LACTULOSE 20Gm/30ML SOLN PO SCH ×5 (06:00→18:07)
[2022-05-13] MEDS: metroNIDAZOLE 500 MG TAB PO SCH ×5 (06:00→20:09)
[2022-05-13 06:03] LABS: Nucleated Red Blood Cells % 4.5 %
[2022-05-13 06:18] LABS: Potassium 3.8 mmol/L (3.5-5.1)
[2022-05-13 06:22] LABS: BUN/Creatinine Ratio 14.6; Calcium 8.5 mg/dL (8.5-10.1); Magnesium 2.8 mg/dL (1.6-2.6)
[2022-05-13 06:24] LABS: Bilirubin, Total 1.9 mg/dL (0.2-1.0); Phosphorus 4.8 mg/dL (2.5-4.90)
[2022-05-13] MEDS: PHENYLEPHRINE INJ 40 MG in SODIUM CHL 0.9% 246 ML IV SCH ×2 (07:00→22:00)
[2022-05-13] MEDS: InsuLIN REG 1unit/0.01ml Soln (100units/ml) SC SCH ×4 (08:42→18:00)
[2022-05-13] MEDS: ENOXAPARIN SOD 80 MG/0.8ML SYRINGE SC SCH (09:48)
[2022-05-13] MEDS: PANTOPRAZOLE 40 MG/10 ML VIAL INJ IV SCH ×2 (09:48→21:39)
[2022-05-13] MEDS: METOPROLOL TARTRATE 25 MG TAB PO SCH (09:48)
[2022-05-13] MEDS: MEROPENEM 500MG IVPB 50 ML IV SCH (09:48)
[2022-05-13] MEDS: VASOPRESSIN 20 UNITS in SODIUM CHL 0.9% 99 ML IV SCH ×2 (10:00→21:06)
[2022-05-13] MEDS: NOREPINEPHRINE 8 MG/250ML KIT 250 ML IV SCH (12:15)
[2022-05-13 12:44] LABS: Hepatitis B Surface Antibody Negative (Negative)
[2022-05-13 14:06] LABS: Hepatitis A Total Antibody Negative (Negative)
[2022-05-13 15:24] LABS: Hepatitis C Antibody Negative (Negative)
[2022-05-13] MEDS ORDERED: LIDOCAINE 1% (LOCAL ANESTH.) PF 5ml SDV ID ONE (17:00)
[2022-05-13] MEDS: methylPREDNISolone SOD SUCC 125 MG/2 ML VL IV SCH ×2 (18:10)
[2022-05-13] MEDS: PPN PER PHARMACY IV NR ×8 (20:11)
[2022-05-13] MEDS ORDERED: EPOETIN ALFA-EPBX 4,000 UNIT/ML VIAL SC ONE (21:00)
[2022-05-13] MEDS ORDERED: EPOETIN ALFA-EPBX 10,000 UNIT/1ML VIAL SC ONE (21:00)
[2022-05-13] MEDS: SODIUM CHLOR 0.9% PF (SALINE LOCK) 10ML VIAL/SYR IV SCH (23:45)
[2022-05-14] VITALS (99 sets, daily range): BP systolic 69–161; BP diastolic 22–88
[2022-05-14] MEDS: LACTULOSE 20Gm/30ML SOLN PO SCH ×5 (00:15→23:53)
[2022-05-14] MEDS: METOPROLOL TARTRATE 25 MG TAB PO SCH ×3 (00:16→23:42)
[2022-05-14] MEDS: metroNIDAZOLE 500 MG TAB PO SCH ×5 (00:16→23:53)
[2022-05-14] MEDS: ACCU-CHEK COMFORT CURVE STRIP VI SCH ×5 (01:05→23:52)
[2022-05-14] MEDS: InsuLIN REG 1unit/0.01ml Soln (100units/ml) SC SCH ×5 (01:06→23:52)
[2022-05-14] MEDS: MIDAZOLAM DRIP 50 mg/50mL 50 ML IV SCH (01:15)
[2022-05-14] MEDS: HYDROcodone-ACET 5/325MG TAB PO PRN (02:34)
[2022-05-14] MEDS ORDERED: SODIUM CHL 0.9% 1000 ML BAG XX ONE (04:45)
[2022-05-14] MEDS: methylPREDNISolone SOD SUCC 125 MG/2 ML VL IV SCH (05:19)
[2022-05-14] MEDS: AMIODARONE 450mg/250ml AE 250 ML IV SCH ×2 (05:43→21:00)
[2022-05-14 06:18] LABS: Albumin 3.2 g/dL (3.4-5.0); BUN/Creatinine Ratio 15.5; Calcium 9.2 mg/dL (8.5-10.1); Magnesium 2.6 mg/dL (1.6-2.6); Potassium 4.2 mmol/L (3.5-5.1)
[2022-05-14 06:20] LABS: Phosphorus 5.2 mg/dL (2.5-4.90); Total Protein 6.1 g/dL (6.4-8.2)
[2022-05-14 06:30] LABS: Basophils # (auto) 0.1 10 ^3/uL (0-0.2); Eosinophils # (auto) 0 10 ^3/uL (0-0.8); Eosinophils % (auto) 0.1 % (0.0-7.0); Hemoglobin 8.5 g/dL (12.2-16.2); Lymphocytes # (auto) 0.4 10 ^3/uL (0.4-5.4); Lymphocytes % (auto) 1.7 % (10.0-50.0); Mean Corpuscular Volume 107.7 fL (80.0-100.0)
[2022-05-14 06:31] LABS: Basophils % (auto) 0.5 % (0.0-2.0); Hematocrit 27.7 % (36.0-46.0); Mean Corpuscular Hemoglobin 32.8 pg (28.0-32.0); Mean Corpuscular Hgb Conc. 30.5 g/dL (32.0-36.0); Monocytes # (auto) 0.8 10 ^3/uL (0-1.3); Monocytes % (auto) 3.8 % (0.0-12.0); Neutrophils # (auto) 19.4 10 ^3/uL (1.6-8.6); Neutrophils % (auto) 93.9 % (37.0-80.0); Red Blood Cells 2.58 10^6/uL (4.0-5.20); White Blood Cell 20.6 10^3/uL (4.4-10.8)
[2022-05-14 06:42] LABS: Red Cell Distribution Width 26.7 % (11.8-14.3)
[2022-05-14] MEDS: VASOPRESSIN 20 UNITS in SODIUM CHL 0.9% 99 ML IV SCH ×2 (08:13→19:20)
[2022-05-14] MEDS ORDERED: VANCOMYCIN 1GM/250ML 250 ML IV ONE (09:30)
[2022-05-14] MEDS: ENOXAPARIN SOD 80 MG/0.8ML SYRINGE SC SCH (09:45)
[2022-05-14] MEDS: PANTOPRAZOLE 40 MG/10 ML VIAL INJ IV SCH ×2 (09:46→23:42)
[2022-05-14] MEDS: SODIUM CHLOR 0.9% PF (SALINE LOCK) 10ML VIAL/SYR IV SCH ×2 (09:51→23:42)
[2022-05-14] MEDS: CEFEPIME 1GM/ 50ML 50 ML IV SCH (12:03)
[2022-05-14] MEDS: NOREPINEPHRINE 8 MG/250ML KIT 250 ML IV SCH ×2 (12:15→17:00)
[2022-05-14] MEDS: PHENYLEPHRINE INJ 40 MG in SODIUM CHL 0.9% 246 ML IV SCH (14:36)
[2022-05-14] MEDS ORDERED: SODIUM BICARBONATE 8.4 % INJ 50ML VIAL IV ONE ×2 (16:15→16:16)
[2022-05-14] MEDS ORDERED: SUCCINYLCHOLINE CHLORIDE 20 MG/ML 10ML VIAL IV ONE (16:36)
[2022-05-14] MEDS ORDERED: ROCURONIUM 10MG/ML 10ML VIAL IV ONE ×2 (16:36→18:00)
[2022-05-14] MEDS ORDERED: ETOMIDATE (2MG/ML) 20ML VIAL IV ONE ×2 (16:36→18:00)
[2022-05-14] MEDS ORDERED: PROPOFOL 100 ML IV ONE (16:44)
[2022-05-14] MEDS ORDERED: fentaNYL Drip 2500mCg/250mlNS 250 ML IV ONE (16:44)
[2022-05-14] MEDS: fentaNYL Drip 2500mCg/250mlNS 250 ML IV SCH (16:45)
[2022-05-14] MEDS: PROPOFOL 100 ML IV SCH ×2 (16:45→22:40)
[2022-05-14] MEDS ORDERED: ROCURONIUM 10MG/ML 10ML VIAL IV PRN (18:45)
[2022-05-14] MEDS: PPN PER PHARMACY IV NR ×8 (19:53)
[2022-05-14] MEDS ORDERED: PPN PER PHARMACY IV NR ×7 (20:00)
[2022-05-14] MEDS ORDERED: EPOETIN ALFA-EPBX 10,000 UNIT/1ML VIAL SC ONE (21:00)
[2022-05-15] VITALS (99 sets, daily range): BP systolic 88–147; BP diastolic 27–72
[2022-05-15] MEDS: ACETAMINOPHEN 500 MG TAB PO PRN (00:52)
[2022-05-15] MEDS: MIDAZOLAM DRIP 50 mg/50mL 50 ML IV SCH (01:15)
[2022-05-15] MEDS: metroNIDAZOLE 500 MG TAB PO SCH ×4 (05:59→23:51)
[2022-05-15] MEDS: LACTULOSE 20Gm/30ML SOLN PO SCH ×4 (06:00→23:51)
[2022-05-15] MEDS: ACCU-CHEK COMFORT CURVE STRIP VI SCH ×4 (06:08→23:48)
[2022-05-15] MEDS: InsuLIN REG 1unit/0.01ml Soln (100units/ml) SC SCH ×4 (06:08→23:45)
[2022-05-15] MEDS: VASOPRESSIN 20 UNITS in SODIUM CHL 0.9% 99 ML IV SCH ×2 (06:27→17:17)
[2022-05-15] MEDS: PHENYLEPHRINE INJ 40 MG in SODIUM CHL 0.9% 246 ML IV SCH (07:20)
[2022-05-15] MEDS: NOREPINEPHRINE 8 MG/250ML KIT 250 ML IV SCH (07:44)
[2022-05-15 08:20] LABS: % Iron Saturation 91.2 % (15-50)
[2022-05-15] MEDS ORDERED: methylPREDNISolone SOD SUCC 125 MG/2 ML VL IV SCH (10:00)
[2022-05-15] MEDS: SODIUM CHLOR 0.9% PF (SALINE LOCK) 10ML VIAL/SYR IV SCH ×2 (10:00→22:19)
[2022-05-15] MEDS ORDERED: TPN PER PHARMACY 0 ML IV SCH (10:30)
[2022-05-15] MEDS ORDERED: ALBUMIN 25% 100 ML IV ONE (10:45)
[2022-05-15 10:52] LABS: Potassium 3.8 mmol/L (3.5-5.1)
[2022-05-15 10:53] LABS: BUN/Creatinine Ratio 17.3
[2022-05-15 10:54] LABS: Albumin 2.8 g/dL (3.4-5.0); Bilirubin, Total 2.3 mg/dL (0.2-1.0); Calcium 8.2 mg/dL (8.5-10.1); Magnesium 2.7 mg/dL (1.6-2.6); Phosphorus 3.2 mg/dL (2.5-4.90)
[2022-05-15 11:23] LABS: Hematocrit 29.5 % (36.0-46.0); Mean Corpuscular Hgb Conc. 32.7 g/dL (32.0-36.0)
[2022-05-15 11:25] LABS: Hemoglobin 9.7 g/dL (12.2-16.2); Mean Corpuscular Hemoglobin 34.4 pg (28.0-32.0); Mean Corpuscular Volume 105.1 fL (80.0-100.0); Red Blood Cells 2.81 10^6/uL (4.0-5.20); White Blood Cell 25.4 10^3/uL (4.4-10.8)
[2022-05-15 11:34] LABS: Red Cell Distribution Width 28.9 % (11.8-14.3)
[2022-05-15 11:35] LABS: Blast Cells 0; Eosinophils % (manual) 0 (0-7); Metamyelocytes % 0; Myelocytes % 0; Promyelocytes % 0; Reactive Lymphocytes 0
[2022-05-15] MEDS: AMIODARONE 450mg/250ml AE 250 ML IV SCH (12:00)
[2022-05-15] MEDS: PROPOFOL 100 ML IV SCH (12:01)
[2022-05-15] MEDS: ENOXAPARIN SOD 80 MG/0.8ML SYRINGE SC SCH (12:11)
[2022-05-15] MEDS: METOPROLOL TARTRATE 25 MG TAB PO SCH ×2 (12:12→22:00)
[2022-05-15] MEDS: PANTOPRAZOLE 40 MG/10 ML VIAL INJ IV SCH ×2 (12:25→22:19)
[2022-05-15] MEDS: CEFEPIME 1GM/ 50ML 50 ML IV SCH (12:27)
[2022-05-15] MEDS: fentaNYL Drip 2500mCg/250mlNS 250 ML IV SCH (14:03)
[2022-05-15 14:32] LABS: Band Neutrophils % (manual) 6; Basophils % (manual) 1 (0.0-2.0); Lymphocytes % (manual) 3 (10.0-50.0); Monocytes % (manual) 4 (0-12)
[2022-05-15] MEDS ORDERED: TPN PER PHARMACY IV NR ×9 (20:00)
[2022-05-16] VITALS (106 sets, daily range): BP systolic 76–139; BP diastolic 37–80
[2022-05-16] MEDS: MIDAZOLAM DRIP 50 mg/50mL 50 ML IV SCH (01:15)
[2022-05-16] MEDS: AMIODARONE 450mg/250ml AE 250 ML IV SCH ×2 (03:00→16:08)
[2022-05-16 04:41] LABS: Eosinophils # (auto) 0 10 ^3/uL (0-0.8); Hematocrit 29.7 % (36.0-46.0); Hemoglobin 9.4 g/dL (12.2-16.2); Red Blood Cells 2.75 10^6/uL (4.0-5.20)
[2022-05-16] MEDS: VASOPRESSIN 20 UNITS in SODIUM CHL 0.9% 99 ML IV SCH ×2 (04:41→15:48)
[2022-05-16 04:43] LABS: Basophils # (auto) 0.1 10 ^3/uL (0-0.2); Basophils % (auto) 0.6 % (0.0-2.0); Eosinophils % (auto) 0.2 % (0.0-7.0); Lymphocytes # (auto) 0.7 10 ^3/uL (0.4-5.4); Lymphocytes % (auto) 3.4 % (10.0-50.0); Mean Corpuscular Hemoglobin 34.1 pg (28.0-32.0); Mean Corpuscular Hgb Conc. 31.5 g/dL (32.0-36.0); Mean Corpuscular Volume 108.1 fL (80.0-100.0); Monocytes # (auto) 0.6 10 ^3/uL (0-1.3); Neutrophils # (auto) 19.9 10 ^3/uL (1.6-8.6); Neutrophils % (auto) 92.8 % (37.0-80.0); Nucleated Red Blood Cells % 4.8 %; Red Cell Distribution Width 29.9 % (11.8-14.3); White Blood Cell 21.4 10^3/uL (4.4-10.8)
[2022-05-16] MEDS: metroNIDAZOLE 500 MG TAB PO SCH ×4 (05:31→23:46)
[2022-05-16] MEDS: LACTULOSE 20Gm/30ML SOLN PO SCH ×4 (05:31→23:46)
[2022-05-16] MEDS: PROPOFOL 100 ML IV SCH (05:36)
[2022-05-16] MEDS: ACCU-CHEK COMFORT CURVE STRIP VI SCH ×3 (06:00→17:56)
[2022-05-16] MEDS: InsuLIN REG 1unit/0.01ml Soln (100units/ml) SC SCH ×3 (06:43→17:56)
[2022-05-16] MEDS: NOREPINEPHRINE 8 MG/250ML KIT 250 ML IV SCH (09:16)
[2022-05-16] MEDS: fentaNYL Drip 2500mCg/250mlNS 250 ML IV SCH (09:20)
[2022-05-16] MEDS ORDERED: Nepro With Carb Steady 1 Liter Bottle GT SCH (09:45)
[2022-05-16] MEDS: METOPROLOL TARTRATE 25 MG TAB PO SCH ×2 (09:47→21:58)
[2022-05-16] MEDS: ENOXAPARIN SOD 80 MG/0.8ML SYRINGE SC SCH (09:48)
[2022-05-16] MEDS: SODIUM CHLOR 0.9% PF (SALINE LOCK) 10ML VIAL/SYR IV SCH ×2 (09:49→21:58)
[2022-05-16] MEDS: PANTOPRAZOLE 40 MG/10 ML VIAL INJ IV SCH ×2 (09:49→21:58)
[2022-05-16] MEDS: CEFEPIME 1GM/ 50ML 50 ML IV SCH (09:50)
[2022-05-16 10:04] LABS: Albumin 2.9 g/dL (3.4-5.0); Calcium 8.3 mg/dL (8.5-10.1); Magnesium 2.4 mg/dL (1.6-2.6); Potassium 3.1 mmol/L (3.5-5.1)
[2022-05-16 10:07] LABS: BUN/Creatinine Ratio 17.6; Bilirubin, Total 1.9 mg/dL (0.2-1.0); Phosphorus 2.4 mg/dL (2.5-4.90); Total Protein 5.3 g/dL (6.4-8.2)
[2022-05-16] MEDS: methylPREDNISolone SOD SUCC 40 MG/ML VL IV SCH (10:11)
[2022-05-16] MEDS ORDERED: POTASSIUM PHOSP 22MEQ(15MMOLE) in NS 100 ML IV ONE (11:15)
[2022-05-16] MEDS ORDERED: VANCOMYCIN 1GM/250ML 250 ML IV ONE (15:00)
[2022-05-16] MEDS: PHENYLEPHRINE INJ 40 MG in SODIUM CHL 0.9% 246 ML IV SCH ×3 (16:08)
[2022-05-16] MEDS ORDERED: TPN PER PHARMACY IV NR ×10 (20:00)
[2022-05-17] VITALS (105 sets, daily range): BP systolic 89–128; BP diastolic 40–96
[2022-05-17] MEDS: ACCU-CHEK COMFORT CURVE STRIP VI SCH ×4 (00:05→17:35)
[2022-05-17] MEDS: InsuLIN REG 1unit/0.01ml Soln (100units/ml) SC SCH ×4 (00:05→17:35)
[2022-05-17] MEDS: MIDAZOLAM DRIP 50 mg/50mL 50 ML IV SCH (01:15)
[2022-05-17] MEDS: VASOPRESSIN 20 UNITS in SODIUM CHL 0.9% 99 ML IV SCH ×2 (02:55→14:02)
[2022-05-17] MEDS: fentaNYL Drip 2500mCg/250mlNS 250 ML IV SCH ×2 (03:37→23:05)
[2022-05-17] MEDS: PROPOFOL 100 ML IV SCH (03:38)
[2022-05-17] MEDS: ALBUMIN 25% 100 ML IV PRN ×2 (05:20→06:25)
[2022-05-17] MEDS ORDERED: SODIUM CHL 0.9% 1000 ML BAG XX ONE (05:30)
[2022-05-17] MEDS: LACTULOSE 20Gm/30ML SOLN PO SCH ×3 (06:02→17:23)
[2022-05-17] MEDS: metroNIDAZOLE 500 MG TAB PO SCH ×2 (06:02→12:02)
[2022-05-17 07:37] LABS: Albumin 4.2 g/dL (3.4-5.0); Magnesium 2.3 mg/dL (1.6-2.6); Potassium 3.8 mmol/L (3.5-5.1)
[2022-05-17 07:42] LABS: BUN/Creatinine Ratio 16.6; Bilirubin, Total 2.5 mg/dL (0.2-1.0); Phosphorus 2.7 mg/dL (2.5-4.90); Total Protein 6.9 g/dL (6.4-8.2)
[2022-05-17] MEDS ORDERED: AMIODARONE HCL 200 MG TAB ONE (08:13)
[2022-05-17] MEDS: NOREPINEPHRINE 8 MG/250ML KIT 250 ML IV SCH (08:13)
[2022-05-17] MEDS: PANTOPRAZOLE 40 MG/10 ML VIAL INJ IV SCH ×2 (09:03→20:57)
[2022-05-17] MEDS: methylPREDNISolone SOD SUCC 40 MG/ML VL IV SCH (09:03)
[2022-05-17] MEDS: AMIODARONE 450mg/250ml AE 250 ML IV SCH (09:03)
[2022-05-17] MEDS: ENOXAPARIN SOD 80 MG/0.8ML SYRINGE SC SCH (09:03)
[2022-05-17] MEDS: METOPROLOL TARTRATE 25 MG TAB PO SCH ×2 (09:04→20:58)
[2022-05-17] MEDS: PHENYLEPHRINE INJ 40 MG in SODIUM CHL 0.9% 246 ML IV SCH (09:04)
[2022-05-17] MEDS: SODIUM CHLOR 0.9% PF (SALINE LOCK) 10ML VIAL/SYR IV SCH ×2 (09:04→20:57)
[2022-05-17] MEDS: CEFEPIME 1GM/ 50ML 50 ML IV SCH ×2 (09:06→21:01)
[2022-05-17] MEDS: AMIODARONE HCL 200 MG TAB PO SCH ×2 (09:31→20:57)
[2022-05-17] MEDS: METOCLOPRAMIDE HCL 5MG/ml INJ 2ml VIAL IV SCH ×2 (17:24→20:57)
[2022-05-17] MEDS: ACETAMINOPHEN 500 MG TAB PO PRN (17:24)
[2022-05-17] MEDS ORDERED: TPN PER PHARMACY IV NR ×9 (20:00)
[2022-05-17] MEDS ORDERED: EPOETIN ALFA-EPBX 10,000 UNIT/1ML VIAL SC ONE (21:00)
[2022-05-18] VITALS (101 sets, daily range): BP systolic 82–162; BP diastolic 25–83
[2022-05-18] MEDS: ACCU-CHEK COMFORT CURVE STRIP VI SCH ×4 (00:22→18:56)
[2022-05-18] MEDS: InsuLIN REG 1unit/0.01ml Soln (100units/ml) SC SCH ×4 (00:22→18:56)
[2022-05-18] MEDS: LACTULOSE 20Gm/30ML SOLN PO SCH ×4 (00:23→17:33)
[2022-05-18] MEDS: PROPOFOL 100 ML IV SCH (00:43)
[2022-05-18] MEDS: VASOPRESSIN 20 UNITS in SODIUM CHL 0.9% 99 ML IV SCH ×3 (01:09→23:23)
[2022-05-18] MEDS: MIDAZOLAM DRIP 50 mg/50mL 50 ML IV SCH (01:15)
[2022-05-18] MEDS: PHENYLEPHRINE INJ 40 MG in SODIUM CHL 0.9% 246 ML IV SCH ×2 (02:00→18:14)
[2022-05-18] MEDS: METOCLOPRAMIDE HCL 5MG/ml INJ 2ml VIAL IV SCH ×3 (05:04→21:13)
[2022-05-18 05:38] LABS: Hematocrit 29.5 % (36.0-46.0); Hemoglobin 9.1 g/dL (12.2-16.2); Mean Corpuscular Hemoglobin 33.3 pg (28.0-32.0); Mean Corpuscular Volume 107.5 fL (80.0-100.0); Red Blood Cells 2.75 10^6/uL (4.0-5.20); White Blood Cell 16.3 10^3/uL (4.4-10.8)
[2022-05-18 05:55] LABS: Band Neutrophils % (manual) 0; Basophils % (manual) 0 (0.0-2.0); Blast Cells 0; Eosinophils % (manual) 0 (0-7); Metamyelocytes % 0; Myelocytes % 0; Promyelocytes % 0; Reactive Lymphocytes 0
[2022-05-18 06:01] LABS: Albumin 2.7 g/dL (3.4-5.0); BUN/Creatinine Ratio 19.3; Bilirubin, Total 2.2 mg/dL (0.2-1.0); Calcium 8.4 mg/dL (8.5-10.1); Magnesium 2.1 mg/dL (1.6-2.6); Phosphorus 4.4 mg/dL (2.5-4.90); Total Protein 4.8 g/dL (6.4-8.2)
[2022-05-18 07:34] LABS: Lymphocytes % (manual) 2 (10.0-50.0); Monocytes % (manual) 5 (0-12)
[2022-05-18] MEDS: PANTOPRAZOLE 40 MG/10 ML VIAL INJ IV SCH ×2 (09:52→21:13)
[2022-05-18] MEDS: AMIODARONE HCL 200 MG TAB PO SCH ×2 (09:52→21:18)
[2022-05-18] MEDS: ENOXAPARIN SOD 80 MG/0.8ML SYRINGE SC SCH (09:52)
[2022-05-18] MEDS: methylPREDNISolone SOD SUCC 40 MG/ML VL IV SCH (09:52)
[2022-05-18] MEDS: SODIUM CHLOR 0.9% PF (SALINE LOCK) 10ML VIAL/SYR IV SCH ×2 (10:03→21:18)
[2022-05-18] MEDS: METOPROLOL TARTRATE 25 MG TAB PO SCH ×2 (10:09→21:23)
[2022-05-18] MEDS: CEFEPIME 1GM/ 50ML 50 ML IV SCH ×2 (10:19→21:18)
[2022-05-18] MEDS: AMIODARONE 450mg/250ml AE 250 ML IV SCH ×2 (15:00)
[2022-05-18] MEDS: NOREPINEPHRINE 8 MG/250ML KIT 250 ML IV SCH (17:33)
[2022-05-18] MEDS ORDERED: DEXTROSE (50%) 50ML SYRG IV SCH (18:30)
[2022-05-19] VITALS (47 sets, daily range): BP systolic 92–117; BP diastolic 50–74
[2022-05-19] MEDS: ACCU-CHEK COMFORT CURVE STRIP VI SCH ×4 (00:16→18:00)
[2022-05-19] MEDS: InsuLIN REG 1unit/0.01ml Soln (100units/ml) SC SCH ×4 (00:16→18:00)
[2022-05-19] MEDS: LACTULOSE 20Gm/30ML SOLN PO SCH ×4 (00:17→22:00)
[2022-05-19] MEDS: MIDAZOLAM DRIP 50 mg/50mL 50 ML IV SCH (01:15)
[2022-05-19] MEDS: PROPOFOL 100 ML IV SCH ×2 (03:33→15:03)
[2022-05-19] MEDS: fentaNYL Drip 2500mCg/250mlNS 250 ML IV SCH (03:33)
[2022-05-19] MEDS: AMIODARONE 450mg/250ml AE 250 ML IV SCH ×2 (04:58→21:00)
[2022-05-19] MEDS: METOCLOPRAMIDE HCL 5MG/ml INJ 2ml VIAL IV SCH (06:00)
[2022-05-19 09:47] LABS: Hemoglobin 9.2 g/dL (12.2-16.2); White Blood Cell 12.4 10^3/uL (4.4-10.8)
[2022-05-19 09:48] LABS: Hematocrit 27.3 % (36.0-46.0); Mean Corpuscular Hgb Conc. 33.9 g/dL (32.0-36.0); Mean Corpuscular Volume 106.2 fL (80.0-100.0); Red Blood Cells 2.57 10^6/uL (4.0-5.20)
[2022-05-19 09:50] LABS: Red Cell Distribution Width 32.1 % (11.8-14.3)
[2022-05-19 09:51] LABS: Basophils % (manual) 0 (0.0-2.0); Blast Cells 0; Eosinophils % (manual) 0 (0-7); Metamyelocytes % 0; Myelocytes % 0; Promyelocytes % 0; Reactive Lymphocytes 0
[2022-05-19] MEDS: AMIODARONE HCL 200 MG TAB PO SCH ×2 (10:00→22:00)
[2022-05-19 10:09] LABS: BUN/Creatinine Ratio 18.5; Calcium 8.1 mg/dL (8.5-10.1); Potassium 4.2 mmol/L (3.5-5.1)
[2022-05-19] MEDS: VASOPRESSIN 20 UNITS in SODIUM CHL 0.9% 99 ML IV SCH ×2 (10:30→21:37)
[2022-05-19] MEDS: METOPROLOL TARTRATE 25 MG TAB PO SCH ×2 (11:02→22:00)
[2022-05-19] MEDS: methylPREDNISolone SOD SUCC 40 MG/ML VL IV SCH (11:02)
[2022-05-19] MEDS: ENOXAPARIN SOD 80 MG/0.8ML SYRINGE SC SCH (11:03)
[2022-05-19] MEDS: SODIUM CHLOR 0.9% PF (SALINE LOCK) 10ML VIAL/SYR IV SCH ×2 (11:03→23:15)
[2022-05-19] MEDS: PANTOPRAZOLE 40 MG/10 ML VIAL INJ IV SCH ×2 (11:03→23:14)
[2022-05-19] MEDS: PHENYLEPHRINE INJ 40 MG in SODIUM CHL 0.9% 246 ML IV SCH (11:14)
[2022-05-19] MEDS ORDERED: HEPARIN 1,000 UNITS/ml 1ML VIAL IV ONE ×4 (13:30→13:45)
[2022-05-19 15:08] LABS: Band Neutrophils % (manual) 8; Lymphocytes % (manual) 4 (10.0-50.0); Monocytes % (manual) 6 (0-12)
[2022-05-19] MEDS ORDERED: SODIUM CHL 0.9% 1000 ML BAG XX ONE (15:30)
[2022-05-19] MEDS: NOREPINEPHRINE 8 MG/250ML KIT 250 ML IV SCH (16:45)
[2022-05-19] MEDS ORDERED: VANCOMYCIN 1GM/250ML 250 ML IV ONE ×2 (19:00→20:45)
[2022-05-19] MEDS ORDERED: EPOETIN ALFA-EPBX 10,000 UNIT/1ML VIAL SC ONE (21:00)
[2022-05-20] VITALS (81 sets, daily range): BP systolic 72–123; BP diastolic 33–76
[2022-05-20] MEDS: MIDAZOLAM DRIP 50 mg/50mL 50 ML IV SCH (01:15)
[2022-05-20 04:00] LABS: Eosinophils # (auto) 0 10 ^3/uL (0-0.8); Eosinophils % (auto) 0.2 % (0.0-7.0); Lymphocytes # (auto) 0.2 10 ^3/uL (0.4-5.4); Monocytes # (auto) 0.6 10 ^3/uL (0-1.3); Nucleated Red Blood Cells % 0.1 %; Red Blood Cells 2.53 10^6/uL (4.0-5.20)
[2022-05-20] MEDS: PHENYLEPHRINE INJ 40 MG in SODIUM CHL 0.9% 246 ML IV SCH ×2 (04:00→20:40)
[2022-05-20 04:02] LABS: Basophils # (auto) 0.1 10 ^3/uL (0-0.2); Hematocrit 26.9 % (36.0-46.0); Hemoglobin 8.9 g/dL (12.2-16.2); Lymphocytes % (auto) 1.7 % (10.0-50.0); Mean Corpuscular Hemoglobin 35.1 pg (28.0-32.0); Mean Corpuscular Volume 106.3 fL (80.0-100.0); Monocytes % (auto) 5.1 % (0.0-12.0); Neutrophils # (auto) 11.1 10 ^3/uL (1.6-8.6); White Blood Cell 12.1 10^3/uL (4.4-10.8)
[2022-05-20 04:17] LABS: Red Cell Distribution Width 32.4 % (11.8-14.3)
[2022-05-20 04:18] LABS: Albumin 2.8 g/dL (3.4-5.0); Calcium 8.2 mg/dL (8.5-10.1); Potassium 3.8 mmol/L (3.5-5.1)
[2022-05-20 04:21] LABS: BUN/Creatinine Ratio 15.5; Bilirubin, Total 2.1 mg/dL (0.2-1.0); Total Protein 4.9 g/dL (6.4-8.2)
[2022-05-20] MEDS: ACCU-CHEK COMFORT CURVE STRIP VI SCH ×5 (06:00→23:47)
[2022-05-20] MEDS: InsuLIN REG 1unit/0.01ml Soln (100units/ml) SC SCH ×5 (06:00→23:47)
[2022-05-20] MEDS: LACTULOSE 20Gm/30ML SOLN PO SCH ×2 (07:56→22:02)
[2022-05-20] MEDS: METOPROLOL TARTRATE 25 MG TAB PO SCH ×2 (07:57→22:00)
[2022-05-20] MEDS: AMIODARONE HCL 200 MG TAB PO SCH ×2 (07:57→21:59)
[2022-05-20] MEDS: PANTOPRAZOLE 40 MG/10 ML VIAL INJ IV SCH ×2 (07:58→21:59)
[2022-05-20] MEDS: methylPREDNISolone SOD SUCC 40 MG/ML VL IV SCH (07:58)
[2022-05-20] MEDS: CEFEPIME 1GM/ 50ML 50 ML IV SCH (08:07)
[2022-05-20] MEDS: SODIUM CHLOR 0.9% PF (SALINE LOCK) 10ML VIAL/SYR IV SCH ×2 (08:07→21:59)
[2022-05-20] MEDS: ENOXAPARIN SOD 80 MG/0.8ML SYRINGE SC SCH (08:08)
[2022-05-20] MEDS: VASOPRESSIN 20 UNITS in SODIUM CHL 0.9% 99 ML IV SCH ×2 (08:08→19:51)
[2022-05-20] MEDS: AMIODARONE 450mg/250ml AE 250 ML IV SCH (12:00)
[2022-05-20] MEDS: PROPOFOL 100 ML IV SCH ×2 (12:43→22:01)
[2022-05-20] MEDS: NOREPINEPHRINE 8 MG/250ML KIT 250 ML IV SCH (18:43)
[2022-05-20] MEDS: fentaNYL Drip 2500mCg/250mlNS 250 ML IV SCH (18:48)
[2022-05-21] VITALS (111 sets, daily range): BP systolic 86–135; BP diastolic 53–103
[2022-05-21] MEDS: MIDAZOLAM DRIP 50 mg/50mL 50 ML IV SCH (01:15)
[2022-05-21] MEDS: AMIODARONE 450mg/250ml AE 250 ML IV SCH ×2 (02:25→10:57)
[2022-05-21 04:19] LABS: Basophils # (auto) 0 10 ^3/uL (0-0.2); Basophils % (auto) 0.1 % (0.0-2.0); Eosinophils # (auto) 0 10 ^3/uL (0-0.8); Lymphocytes # (auto) 0.2 10 ^3/uL (0.4-5.4); White Blood Cell 16.6 10^3/uL (4.4-10.8)
[2022-05-21 04:21] LABS: Eosinophils % (auto) 0.3 % (0.0-7.0); Hematocrit 32.7 % (36.0-46.0); Hemoglobin 10.7 g/dL (12.2-16.2); Lymphocytes % (auto) 0.9 % (10.0-50.0); Mean Corpuscular Hemoglobin 34.8 pg (28.0-32.0); Mean Corpuscular Hgb Conc. 32.6 g/dL (32.0-36.0); Mean Corpuscular Volume 106.8 fL (80.0-100.0); Monocytes # (auto) 0.7 10 ^3/uL (0-1.3); Monocytes % (auto) 4.4 % (0.0-12.0); Neutrophils # (auto) 15.7 10 ^3/uL (1.6-8.6); Neutrophils % (auto) 94.3 % (37.0-80.0); Nucleated Red Blood Cells % 0.1 %; Red Blood Cells 3.06 10^6/uL (4.0-5.20)
[2022-05-21 04:23] LABS: Red Cell Distribution Width 32.1 % (11.8-14.3)
[2022-05-21 04:40] LABS: BUN/Creatinine Ratio 17.4; Calcium 8.6 mg/dL (8.5-10.1); Potassium 3.9 mmol/L (3.5-5.1)
[2022-05-21] MEDS: ACCU-CHEK COMFORT CURVE STRIP VI SCH ×4 (05:58→23:58)
[2022-05-21] MEDS: InsuLIN REG 1unit/0.01ml Soln (100units/ml) SC SCH ×3 (05:58→18:00)
[2022-05-21] MEDS: VASOPRESSIN 20 UNITS in SODIUM CHL 0.9% 99 ML IV SCH ×2 (07:00→18:05)
[2022-05-21] MEDS ORDERED: SODIUM CHL 0.9% 1000 ML BAG XX ONE (07:45)
[2022-05-21] MEDS: PROPOFOL 100 ML IV SCH ×2 (08:43→21:37)
[2022-05-21] MEDS: ENOXAPARIN SOD 80 MG/0.8ML SYRINGE SC SCH (09:46)
[2022-05-21] MEDS: AMIODARONE HCL 200 MG TAB PO SCH ×2 (10:00→21:35)
[2022-05-21] MEDS: LACTULOSE 20Gm/30ML SOLN PO SCH ×2 (10:58→21:35)
[2022-05-21] MEDS: PANTOPRAZOLE 40 MG/10 ML VIAL INJ IV SCH ×2 (10:58→21:35)
[2022-05-21] MEDS: methylPREDNISolone SOD SUCC 40 MG/ML VL IV SCH (10:58)
[2022-05-21] MEDS: SODIUM CHLOR 0.9% PF (SALINE LOCK) 10ML VIAL/SYR IV SCH ×2 (10:59→21:35)
[2022-05-21] MEDS: CEFEPIME 1GM/ 50ML 50 ML IV SCH (10:59)
[2022-05-21] MEDS: METOPROLOL TARTRATE 25 MG TAB PO SCH ×2 (11:01→21:35)
[2022-05-21] MEDS: PHENYLEPHRINE INJ 40 MG in SODIUM CHL 0.9% 246 ML IV SCH (13:20)
[2022-05-21] MEDS: fentaNYL Drip 2500mCg/250mlNS 250 ML IV SCH (16:45)
[2022-05-21] MEDS: NOREPINEPHRINE 8 MG/250ML KIT 250 ML IV SCH (16:45)
[2022-05-21] MEDS ORDERED: EPOETIN ALFA-EPBX 10,000 UNIT/1ML VIAL SC ONE (21:00)
[2022-05-22] VITALS (107 sets, daily range): BP systolic 79–148; BP diastolic 50–115
[2022-05-22] MEDS: InsuLIN REG 1unit/0.01ml Soln (100units/ml) SC SCH ×5 (00:01→23:48)
[2022-05-22] MEDS: MIDAZOLAM DRIP 50 mg/50mL 50 ML IV SCH ×2 (01:15→23:49)
[2022-05-22] MEDS: NOREPINEPHRINE 8 MG/250ML KIT 250 ML IV SCH (01:35)
[2022-05-22] MEDS: AMIODARONE 450mg/250ml AE 250 ML IV SCH ×2 (02:00→22:25)
[2022-05-22 04:15] LABS: Basophils # (auto) 0 10 ^3/uL (0-0.2); Eosinophils # (auto) 0 10 ^3/uL (0-0.8); Eosinophils % (auto) 0.2 % (0.0-7.0); Monocytes # (auto) 1.2 10 ^3/uL (0-1.3); Monocytes % (auto) 6.4 % (0.0-12.0); Neutrophils # (auto) 17.1 10 ^3/uL (1.6-8.6); White Blood Cell 18.6 10^3/uL (4.4-10.8)
[2022-05-22 04:16] LABS: Basophils % (auto) 0.2 % (0.0-2.0); Hematocrit 28.4 % (36.0-46.0); Lymphocytes # (auto) 0.3 10 ^3/uL (0.4-5.4); Lymphocytes % (auto) 1.5 % (10.0-50.0); Mean Corpuscular Hemoglobin 34.3 pg (28.0-32.0); Mean Corpuscular Hgb Conc. 31.9 g/dL (32.0-36.0); Mean Corpuscular Volume 107.6 fL (80.0-100.0); Neutrophils % (auto) 91.7 % (37.0-80.0); Red Blood Cells 2.64 10^6/uL (4.0-5.20)
[2022-05-22 04:28] LABS: Albumin 2.7 g/dL (3.4-5.0); Calcium 8.4 mg/dL (8.5-10.1); Potassium 4.1 mmol/L (3.5-5.1)
[2022-05-22 04:30] LABS: Red Cell Distribution Width 31.3 % (11.8-14.3)
[2022-05-22 04:34] LABS: Total Protein 5.1 g/dL (6.4-8.2)
[2022-05-22] MEDS: VASOPRESSIN 20 UNITS in SODIUM CHL 0.9% 99 ML IV SCH ×3 (04:52→23:49)
[2022-05-22] MEDS: PHENYLEPHRINE INJ 40 MG in SODIUM CHL 0.9% 246 ML IV SCH ×2 (04:53→22:25)
[2022-05-22] MEDS: ACCU-CHEK COMFORT CURVE STRIP VI SCH ×4 (06:02→23:48)
[2022-05-22] MEDS: PROPOFOL 100 ML IV SCH (07:37)
[2022-05-22] MEDS: LACTULOSE 20Gm/30ML SOLN PO SCH ×2 (09:56→22:24)
[2022-05-22] MEDS: PANTOPRAZOLE 40 MG/10 ML VIAL INJ IV SCH ×2 (09:57→22:24)
[2022-05-22] MEDS: methylPREDNISolone SOD SUCC 40 MG/ML VL IV SCH (09:57)
[2022-05-22] MEDS: METOPROLOL TARTRATE 25 MG TAB PO SCH ×2 (09:58→22:24)
[2022-05-22] MEDS: SODIUM CHLOR 0.9% PF (SALINE LOCK) 10ML VIAL/SYR IV SCH ×2 (10:00→22:00)
[2022-05-22] MEDS: ENOXAPARIN SOD 80 MG/0.8ML SYRINGE SC SCH (10:00)
[2022-05-22] MEDS: CEFEPIME 1GM/ 50ML 50 ML IV SCH (10:01)
[2022-05-22] MEDS: AMIODARONE HCL 200 MG TAB PO SCH ×2 (10:04→22:24)
[2022-05-22] MEDS: fentaNYL Drip 2500mCg/250mlNS 250 ML IV SCH (16:45)
[2022-05-23] VITALS (104 sets, daily range): BP systolic 82–122; BP diastolic 51–89
[2022-05-23] MEDS: InsuLIN REG 1unit/0.01ml Soln (100units/ml) SC SCH ×3 (05:36→16:52)
[2022-05-23] MEDS: ACCU-CHEK COMFORT CURVE STRIP VI SCH ×3 (05:37→16:18)
[2022-05-23] MEDS: ACETAMINOPHEN 500 MG TAB PO PRN (05:38)
[2022-05-23] MEDS: PROPOFOL 100 ML IV SCH ×2 (05:38→16:18)
[2022-05-23 07:18] LABS: Hemoglobin 8.4 g/dL (12.2-16.2)
[2022-05-23 07:20] LABS: Hematocrit 25.8 % (36.0-46.0); Mean Corpuscular Hemoglobin 35.1 pg (28.0-32.0); Mean Corpuscular Hgb Conc. 32.7 g/dL (32.0-36.0); Mean Corpuscular Volume 107.4 fL (80.0-100.0)
[2022-05-23 07:23] LABS: Red Cell Distribution Width 30.1 % (11.8-14.3)
[2022-05-23 07:25] LABS: Band Neutrophils % (manual) 0; Basophils % (manual) 0 (0.0-2.0); Blast Cells 0; Eosinophils % (manual) 0 (0-7); Metamyelocytes % 0; Myelocytes % 0; Promyelocytes % 0; Reactive Lymphocytes 0
[2022-05-23] MEDS: NOREPINEPHRINE 8 MG/250ML KIT 250 ML IV SCH (07:35)
[2022-05-23 07:42] LABS: Albumin 2.5 g/dL (3.4-5.0); BUN/Creatinine Ratio 17.6; Bilirubin, Total 1.4 mg/dL (0.2-1.0); Calcium 8.4 mg/dL (8.5-10.1); Potassium 4.4 mmol/L (3.5-5.1); Total Protein 5.2 g/dL (6.4-8.2)
[2022-05-23 07:54] LABS: Lymphocytes % (manual) 5 (10.0-50.0); Monocytes % (manual) 1 (0-12)
[2022-05-23] MEDS: PANTOPRAZOLE 40 MG/10 ML VIAL INJ IV SCH ×2 (08:33→22:12)
[2022-05-23] MEDS: CEFEPIME 1GM/ 50ML 50 ML IV SCH (08:33)
[2022-05-23] MEDS: ENOXAPARIN SOD 80 MG/0.8ML SYRINGE SC SCH (08:34)
[2022-05-23] MEDS: AMIODARONE HCL 200 MG TAB PO SCH ×2 (08:34→22:12)
[2022-05-23] MEDS: methylPREDNISolone SOD SUCC 40 MG/ML VL IV SCH (08:35)
[2022-05-23] MEDS: SODIUM CHLOR 0.9% PF (SALINE LOCK) 10ML VIAL/SYR IV SCH ×2 (08:35→22:12)
[2022-05-23] MEDS: METOPROLOL TARTRATE 25 MG TAB PO SCH ×2 (09:56→22:12)
[2022-05-23] MEDS: LACTULOSE 20Gm/30ML SOLN PO SCH ×2 (09:56→22:12)
[2022-05-23] MEDS: fentaNYL Drip 2500mCg/250mlNS 250 ML IV SCH (09:57)
[2022-05-23] MEDS ORDERED: SODIUM CHLORIDE 0.9% 2,000 ML IV ONE (11:00)
[2022-05-23] MEDS ORDERED: ALBUMIN 25% 100 ML IV PRN (11:00)
[2022-05-23] MEDS ORDERED: HEPARIN SODIUM (PORCINE) 5000 UNITS/ML 1ML VIAL IV ONE (11:00)
[2022-05-23] MEDS ORDERED: HEPARIN 1,000 UNITS/ml 1ML VIAL IV ONE (11:15)
[2022-05-23] MEDS: VASOPRESSIN 20 UNITS in SODIUM CHL 0.9% 99 ML IV SCH (13:27)
[2022-05-23] MEDS: AMIODARONE 450mg/250ml AE 250 ML IV SCH (15:00)
[2022-05-23] MEDS ORDERED: METOPROLOL TARTRATE 1MG/1ML-5ML VIAL IV ONE ×2 (15:00→15:05)
[2022-05-23] MEDS: PHENYLEPHRINE INJ 40 MG in SODIUM CHL 0.9% 246 ML IV SCH (15:20)
[2022-05-24] VITALS (58 sets, daily range): BP systolic 79–135; BP diastolic 54–94
[2022-05-24] MEDS: PROPOFOL 100 ML IV SCH (01:00)
[2022-05-24] MEDS: MIDAZOLAM DRIP 50 mg/50mL 50 ML IV SCH (01:15)
[2022-05-24] MEDS: VASOPRESSIN 20 UNITS in SODIUM CHL 0.9% 99 ML IV SCH ×2 (01:40→07:41)
[2022-05-24 04:35] LABS: Albumin 2.8 g/dL (3.4-5.0); BUN/Creatinine Ratio 16.2; Calcium 8.4 mg/dL (8.5-10.1); Potassium 4.3 mmol/L (3.5-5.1)
[2022-05-24 04:36] LABS: Basophils # (auto) 0.1 10 ^3/uL (0-0.2); Basophils % (auto) 0.7 % (0.0-2.0); Eosinophils # (auto) 0 10 ^3/uL (0-0.8); Eosinophils % (auto) 0.1 % (0.0-7.0); Hematocrit 27.4 % (36.0-46.0); Hemoglobin 8.9 g/dL (12.2-16.2); Lymphocytes # (auto) 0.5 10 ^3/uL (0.4-5.4); Lymphocytes % (auto) 2.5 % (10.0-50.0); Mean Corpuscular Hemoglobin 34.9 pg (28.0-32.0); Mean Corpuscular Hgb Conc. 32.3 g/dL (32.0-36.0); Monocytes # (auto) 0.9 10 ^3/uL (0-1.3); Monocytes % (auto) 4.3 % (0.0-12.0); Neutrophils % (auto) 92.4 % (37.0-80.0); Red Blood Cells 2.54 10^6/uL (4.0-5.20); White Blood Cell 21.6 10^3/uL (4.4-10.8)
[2022-05-24 04:38] LABS: Bilirubin, Total 1.7 mg/dL (0.2-1.0)
[2022-05-24 04:50] LABS: Red Cell Distribution Width 29.7 % (11.8-14.3)
[2022-05-24] MEDS: NOREPINEPHRINE 8 MG/250ML KIT 250 ML IV SCH (05:48)
[2022-05-24] MEDS: InsuLIN REG 1unit/0.01ml Soln (100units/ml) SC SCH ×3 (05:49→11:42)
[2022-05-24] MEDS: ACCU-CHEK COMFORT CURVE STRIP VI SCH ×3 (05:49→11:42)
[2022-05-24] MEDS: AMIODARONE 450mg/250ml AE 250 ML IV SCH ×2 (05:54→07:41)
[2022-05-24] MEDS: SODIUM CHLOR 0.9% PF (SALINE LOCK) 10ML VIAL/SYR IV SCH (07:39)
[2022-05-24] MEDS: PHENYLEPHRINE INJ 40 MG in SODIUM CHL 0.9% 246 ML IV SCH (07:39)
[2022-05-24] MEDS: METOPROLOL TARTRATE 25 MG TAB PO SCH (07:40)
[2022-05-24] MEDS: methylPREDNISolone SOD SUCC 40 MG/ML VL IV SCH (09:44)
[2022-05-24] MEDS: PANTOPRAZOLE 40 MG/10 ML VIAL INJ IV SCH (09:44)
[2022-05-24] MEDS: LACTULOSE 20Gm/30ML SOLN PO SCH (09:44)
[2022-05-24] MEDS: AMIODARONE HCL 200 MG TAB PO SCH (09:45)
[2022-05-24] MEDS: fentaNYL Drip 2500mCg/250mlNS 250 ML IV SCH (15:27)
== END 2022-05-24 16:20 | disposition short-term general hospital (02) | DRG 870 ==
LOC: ER 09:13 → EDBD 09:13 → TELE-EAST 14:19 → OVERFLOW 15:00 → ICU CENTRL 04-29 17:58 → ICU WEST 05-18 07:14
PROVIDERS: ADMIT Nurse Practitioner Acute Care; ATTEND Nurse Practitioner Acute Care
PROC: 5A1955Z Respiratory Ventilation, Greater than 96 Consecutive Hours (ICD-10-PCS; principal; 2022-04-28)
PROC: 0BH17EZ Insertion of Endotracheal Airway into Trachea, Via Natural or Artificial Opening (ICD-10-PCS; 2022-04-28)
PROC: 06HN33Z Insertion of Infusion Device into Left Femoral Vein, Percutaneous Approach (ICD-10-PCS; 2022-04-28)
PROC: 5A12012 Performance of Cardiac Output, Single, Manual (ICD-10-PCS; 2022-04-28)
PROC: 04HY32Z Insertion of Monitoring Device into Lower Artery, Percutaneous Approach (ICD-10-PCS; 2022-04-29)
PROC: 5A1D70Z Performance of Urinary Filtration, Intermittent, Less than 6 Hours Per Day (ICD-10-PCS; 2022-04-29)
PROC: 5A1D70Z Performance of Urinary Filtration, Intermittent, Less than 6 Hours Per Day (ICD-10-PCS; 2022-05-01)
PROC: 5A1D70Z Performance of Urinary Filtration, Intermittent, Less than 6 Hours Per Day (ICD-10-PCS; 2022-05-03)
PROC: 5A1D70Z Performance of Urinary Filtration, Intermittent, Less than 6 Hours Per Day (ICD-10-PCS; 2022-05-06)
PROC: 5A1D70Z Performance of Urinary Filtration, Intermittent, Less than 6 Hours Per Day (ICD-10-PCS; 2022-05-10)
PROC: 5A1D70Z Performance of Urinary Filtration, Intermittent, Less than 6 Hours Per Day (ICD-10-PCS; 2022-05-11)
PROC: 05HB33Z Insertion of Infusion Device into Right Basilic Vein, Percutaneous Approach (ICD-10-PCS; 2022-05-13)
PROC: B54MZZA Ultrasonography of Right Upper Extremity Veins, Guidance (ICD-10-PCS; 2022-05-13)
PROC: 5A1D70Z Performance of Urinary Filtration, Intermittent, Less than 6 Hours Per Day (ICD-10-PCS; 2022-05-13)
PROC: 5A09357 Assistance with Respiratory Ventilation, Less than 24 Consecutive Hours, Continuous Positive Airway Pressure (ICD-10-PCS; 2022-05-14)
PROC: 5A1955Z Respiratory Ventilation, Greater than 96 Consecutive Hours (ICD-10-PCS; 2022-05-14)
PROC: 0BH17EZ Insertion of Endotracheal Airway into Trachea, Via Natural or Artificial Opening (ICD-10-PCS; 2022-05-14)
PROC: 5A1D70Z Performance of Urinary Filtration, Intermittent, Less than 6 Hours Per Day (ICD-10-PCS; 2022-05-15)
PROC: 5A1D70Z Performance of Urinary Filtration, Intermittent, Less than 6 Hours Per Day (ICD-10-PCS; 2022-05-16)
PROC: 5A1D70Z Performance of Urinary Filtration, Intermittent, Less than 6 Hours Per Day (ICD-10-PCS; 2022-05-17)
PROC: 5A1D70Z Performance of Urinary Filtration, Intermittent, Less than 6 Hours Per Day (ICD-10-PCS; 2022-05-19)
PROC: 5A1D70Z Performance of Urinary Filtration, Intermittent, Less than 6 Hours Per Day (ICD-10-PCS; 2022-05-21)
PROC: 5A1D70Z Performance of Urinary Filtration, Intermittent, Less than 6 Hours Per Day (ICD-10-PCS; 2022-05-23)
DX: A41.9 Sepsis, unspecified organism (principal); D65 Disseminated intravascular coagulation [defibrination syndrome]; G93.41 Metabolic encephalopathy; I21.4 Non-ST elevation (NSTEMI) myocardial infarction; I46.9 Cardiac arrest, cause unspecified; J96.01 Acute respiratory failure with hypoxia; N18.6 End stage renal disease; R65.21 Severe sepsis with septic shock; J18.9 Pneumonia, unspecified organism; I38 Endocarditis, valve unspecified; G93.1 Anoxic brain damage, not elsewhere classified; J98.11 Atelectasis; R18.8 Other ascites; K76.6 Portal hypertension; I13.2 Hypertensive heart and chronic kidney disease with heart failure and with stage 5 chronic kidney disease, or end stage renal disease; D50.9 Iron deficiency anemia, unspecified; Z20.822 Contact with and (suspected) exposure to COVID-19; I73.9 Peripheral vascular disease, unspecified; E87.5 Hyperkalemia; Z99.2 Dependence on renal dialysis; I50.810 Right heart failure, unspecified; E16.2 Hypoglycemia, unspecified; F12.20 Cannabis dependence, uncomplicated; I48.91 Unspecified atrial fibrillation; K59.00 Constipation, unspecified; Z82.49 Family history of ischemic heart disease and other diseases of the circulatory system; Z83.3 Family history of diabetes mellitus; Z86.79 Personal history of other diseases of the circulatory system; Z86.718 Personal history of other venous thrombosis and embolism; Z91.199 Patient's noncompliance with other medical treatment and regimen due to unspecified reason; Z86.14 Personal history of Methicillin resistant Staphylococcus aureus infection
CPT/HCPCS: 31500; 36415; 36556; 36569; 36600; 70450; 71045; 71250; 73600; 74018; 74176; 76705; 80048; 80053; 80074; 80202; 82140; 82575; 82728; 82805; 82962; 83540; 83550; 83605; 83735; 84100; 84132; 84478; 84484; 85007; 85025; 85027; 85379; 85610; 85730; 86038; 86704; 86706; 86708; 86803; 87040; 87070; 87081; 87205; 87340; 87426; 90935; 92610; 93005; 93306; 93925; 93971; 94002; 94003; 94640; 94644; 94660; 95819; 96365; 96366; 96368; 96375; 96376; 97110; 97163; 97530; 99291; C9113; G0378; J0171; J0330; J1642; J1815; J2185; J2250; J2704; J7060; J7131; P9047